=== PATIENT | male | born 1935 ===

== ENCOUNTER 2017-07-03 16:41 | Inpatient (IN) | payer MEDICARE, OTHER ==
[2017-07-03] MEDS ORDERED: Albuterol-Ipratrop 3 mg / 0.5 (3 ml) UD INH STA ×2 (17:19→17:21)
--- NOTE | 2017-07-03 17:25 | ED PDOC ---
HPI: SOB/CHF/COPD Time Seen by Provider: 07/03/17 17:07 Chief Complaint (Nursing): Shortness Of Breath Chief Complaint (Provider): SOB History Per: Patient History/Exam Limitations: no limitations Additional Complaint(s): Pt reports SOB X 2 months, associated with nonproductive cough. Denies fever, CP, palpitations. Pt uses MDI and nebulizer at home. Past Medical History Reviewed: Nursing Documentation, Vital Signs Vital Signs: Last Vital Signs Temp 97.6 F 07/03/17 16:57 Pulse 77 07/03/17 16:57 Resp 17 07/03/17 18:30 BP 146/77 07/03/17 16:57 Pulse Ox 98 07/03/17 18:30 - Medical History PMH: Asthma, Atrial Fibrillation, CAD, Cardia Arrhythmia, CHF (Cardiomyopathy), COPD, Diabetes, Emphysema, Gastritis, HTN, Hypercholesterolemia - Surgical History Surgical History: Pacemaker (AICD) - Family History Family History: States: Unknown Family Hx - Living Arrangements Living Arrangements: With Family - Social History Current smoker - smoking cessation education provided: No - Immunization History Hx Tetanus Toxoid Vaccination: No Hx Influenza Vaccination: No Hx Pneumococcal Vaccination: No - Home Medications Home Medications: Ambulatory Orders Medication Instructions Recorded Montelukast [Singulair] 10 mg PO HS 12/29/14 Valsartan [Diovan] 160 mg PO DAILY 12/29/14 Amiodarone HCl [Cordarone] 200 mg PO DAILY 07/07/15 Cholecalciferol [Vitamin D 1000 IU] 2,000 unit PO DAILY 04/24/16 Gabapentin [Neurontin] 300 mg PO BID 04/24/16 Multivit,Iron,Min 5/Folic Acid 1 tab PO DAILY 04/24/16 [Strovite Forte Caplet] Albuterol 0.083% [Albuterol 0.083% 3 ml IH Q4 #30 neb 04/10/17 Inhal Roseanna (2.5 mg/3 ml) UD] Benzonatate [Tessalon Perles] 200 mg PO TID PRN #15 sgl 04/10/17 predniSONE [predniSONE Tab] 60 mg PO DAILY #12 tab 04/10/17 Aspirin [Aspirin Chewable] 81 mg PO DAILY chew 04/18/17 Losartan [Cozaar] 50 mg PO DAILY tab 04/18/17 Mercaptopurine [6-Mp] 100 mg PO DAILY tab 04/18/17 Mesalamine [Delzicol DR] 800 mg PO TID cap 04/18/17 Rosuvastatin Calcium [Crestor] 5 mg PO HS tab 04/18/17 Tamsulosin [Flomax] 0.4 mg PO DAILY cap 04/18/17 - Allergies Allergies/Adverse Reactions: Allergies Allergy/AdvReac Type Severity Reaction Status Date / Time shellfish derived Allergy RASH Verified 04/16/17 16:32 shrimp Allergy RASH Verified 04/16/17 16:32 Review of Systems Constitutional: Negative for: Fever, Chills Cardiovascular: Negative for: Chest Pain, Palpitations Respiratory: Positive for: Cough, Shortness of Breath, Wheezing. Negative for: Hemoptysis, Pleuritic Pain, Sputum Gastrointestinal: Negative for: Nausea, Vomiting, Abdominal Pain, Diarrhea Musculoskeletal: Negative for: Neck Pain, Back Pain Skin: Negative for: Rash, Lesions Neurological: Negative for: Headache Physical Exam - Reviewed Nursing Documentation Reviewed: Yes Vital Signs Reviewed: Yes - Physical Exam Appears: Positive for: Well, No Acute Distress (Speaking full sentences) Skin: Positive for: Normal Color, Warm, Dry Eye Exam: Positive for: Normal appearance, EOMI, PERRL Cardiovascular/Chest: Positive for: Regular Rate, Rhythm Respiratory: Positive for: Wheezing (Bilateral). Negative for: Accessory Muscle Use Gastrointestinal/Abdominal: Positive for: Normal Exam Extremity: Positive for: Normal ROM Neurologic/Psych: Positive for: Alert, applications coordinator II-XII, Oriented - Laboratory Results Result Diagrams: 07/03/17 17:58 07/03/17 17:58 - ECG Interpretation Of ECG: Atrial-paced @ 73, LBBB (old). O2 Sat by Pulse Oximetry: 99 Pulse Ox Interpretation: Normal - Progress ED Course And Treament: Pt with continued bilateral wheezing and SOB after medications. Will admit. Re-evaluation Time: 19:58 Condition: Unchanged Medical Decision Making Medical Decision Makin yo male with wheezing and nonproductive cough. - labs - EKG - CXR - Albuterol/atrovent nebs - Solumedrol Accession No. : [id number] Patient Name / ID : MAHI Sharma [id number] Exam Date : 07/03/2017 17:39:34 ( Approved ) Study Comment : Sex / Age : M / 81Y Creator : renetta celaya Dictator : Jim Bronson MD Medical Office Technology Instructor : Stunt Driver : Jim Bronson MD Approver2 : Report Date : 07/03/2017 17:48:58 My Comment : HISTORY: SOB COMPARISON: 07/07/2015 FINDINGS: LUNGS: No active pulmonary disease. PLEURA: No significant pleural effusion identified, no pneumothorax apparent. CARDIOVASCULAR: Position/ configuration of pacemaker\AICD device: Satisfactory. No radiographic findings to suggest acute or significant cardiovascular disease. OSSEOUS STRUCTURES: No significant abnormalities. VISUALIZED UPPER ABDOMEN: Normal. OTHER FINDINGS: None. IMPRESSION: No active disease. No significant interval change compared to the prior examination(s). Disposition - Clinical Impression Clinical Impression: COPD exacerbation - Patient ED Disposition Is Patient to be Admitted: Yes - Disposition Disposition Time: 19:59 Condition: STABLE Forms: [employer] (Yoruba) - Pt Status Changed To: Hospital Disposition Of: Inpatient - Admit Certification Admit to Inpatient:: After my assessment, the patient will require hospitalization for at least two midnights. This is because of the severity of symptoms shown, intensity of services needed, and/or the medical risk in this patient being treated as an outpatient. - POA Present On Arrival: None
[2017-07-03 18:09] LABS: BASO % 0.6 % (0.0-2.0); EOS # 0.9 K/uL (0.0-0.7); EOS % 13.4 % (0.0-4.0); HEMOGLOBIN 12.9 g/dL (12.0-18.0); LYMPH # 2.3 K/uL (1.0-4.3); LYMPH % 36.2 % (20.0-40.0); MEAN CELL VOLUME 90.6 fl (80.0-94.0); MEAN CORPUSCULAR HEMOGLOBIN 30.3 pg (27.0-31.0); MEAN CORPUSCULAR HGB CONC 33.4 g/dL (33.0-37.0); MEAN PLATELET VOLUME 10.1 fl (7.2-11.7); MONO # 0.4 K/uL (0.0-0.8); MONO % 6.4 % (0.0-10.0); NEUT # 2.8 K/uL (1.8-7.0); NEUT % 43.4 % (50.0-75.0); NRBC % 0.1 % (0.0-0.0); RBC 4.25 Mil/uL (4.40-5.90); RED CELL DISTRIBUTION WIDTH 14.7 % (11.5-14.5); WHITE BLOOD COUNT 6.5 K/uL (4.8-10.8)
[2017-07-03 18:14] LABS: INR 1.2 (0.9-1.2); PARTIAL THROMBOPLASTIN TIME 27.9 Seconds (25.6-37.1)
[2017-07-03 18:15] LABS: CALCIUM 8.8 mg/dL (8.4-10.2); GFR AFRICAN-AMERICAN > 60; GFR NON-AFRICAN AMERICAN > 60
[2017-07-03 18:19] LABS: ALBUMIN 3.9 g/dL (3.5-5.0); ALT/SGPT 28 U/L (21-72); AST/SGOT 31 U/L (17-59); BLOOD UREA NITROGEN 20 mg/dl (9-20)
[2017-07-03] MEDS ORDERED: Albuterol-Ipratrop 3 mg / 0.5 (3 ml) UD ONE (18:26)
--- NOTE | 2017-07-03 18:51 | RAD ---
HISTORY: SOB COMPARISON: 07/07/2015 FINDINGS: LUNGS: No active pulmonary disease. PLEURA: No significant pleural effusion identified, no pneumothorax apparent. CARDIOVASCULAR: Position/ configuration of pacemaker radiographic findings to suggest acute or significant cardiovascular disease. OSSEOUS STRUCTURES: No significant abnormalities. VISUALIZED UPPER ABDOMEN: Normal. OTHER FINDINGS: None. IMPRESSION: No active disease. No significant interval change compared to the prior examination(s). Concordant results with the preliminary interpretation rendered by the emergency department physician procedure.
[2017-07-03] MEDS ORDERED: methylPREDNISolone 60 MG in Sodium Chloride 0.9% 50 ML IVPB SCH (21:00)
[2017-07-03] MEDS ORDERED: MethylPREDNISolone 40 mg Vial ONE (21:39)
[2017-07-04 05:53] LABS: BASO % 0.1 % (0.0-2.0); EOS % 0.2 % (0.0-4.0); HEMOGLOBIN 12.7 g/dL (12.0-18.0); LYMPH # 1.1 K/uL (1.0-4.3); LYMPH % 22.4 % (20.0-40.0); MEAN CELL VOLUME 91.1 fl (80.0-94.0); MEAN CORPUSCULAR HEMOGLOBIN 30.1 pg (27.0-31.0); MEAN PLATELET VOLUME 10.4 fl (7.2-11.7); MONO % 0.5 % (0.0-10.0); NEUT # 3.7 K/uL (1.8-7.0); NEUT % 76.8 % (50.0-75.0); NRBC % 0.2 % (0.0-0.0); RBC 4.23 Mil/uL (4.40-5.90); WHITE BLOOD COUNT 4.8 K/uL (4.8-10.8)
[2017-07-04 06:08] LABS: ALB/GLOB RATIO 0.9 (1.0-2.1); ALBUMIN 3.7 g/dL (3.5-5.0); ALT/SGPT 30 U/L (21-72); AST/SGOT 19 U/L (17-59); BLOOD UREA NITROGEN 19 mg/dl (9-20); CALCIUM 9.2 mg/dL (8.4-10.2); GFR AFRICAN-AMERICAN > 60; GFR NON-AFRICAN AMERICAN > 60
[2017-07-04] MEDS: Albuterol-Ipratrop 3 mg / 0.5 (3 ml) UD INH PRN ×3 (07:51→19:02)
--- NOTE | 2017-07-04 07:58 | CP.PCM.HP ---
History of Present Illness - History of Present Illness History of Present Illness: pt admitted for copd exacerbation. has hads/s on/off x 1 month since being tx foruri/bronchitits. at present comfortable but on nasal o2. no f/c, n/v/d. bw noted. Present on Admission - Present on Admission Any Indicators Present on Admission: No Review of Systems - Respiratory Respiratory: As Per HPI, Cough, Dyspnea on Exertion, Wheezing, Chest Congestion Past Patient History - Infectious Disease Hx of Infectious Diseases: None - Past Medical History & Family History Past Medical History?: Yes - Past Social History Smoking Status: Former Smoker - CARDIAC Hx Atrial Fibrillation: Yes Hx Cardia Arrhythmia: Yes Hx Congestive Heart Failure: Yes (Cardiomyopathy) Hx Hypercholesterolemia: Yes Hx Hypertension: Yes Hx Pacemaker: Yes (AICD) - PULMONARY Hx Asthma: Yes Hx Chronic Obstructive Pulmonary Disease (COPD): Yes Hx Emphysema: Yes - NEUROLOGICAL Hx Neurological Disorder: No - HEENT Hx HEENT Problems: No - RENAL Hx Chronic Kidney Disease: No - ENDOCRINE/METABOLIC Hx Endocrine Disorders: No - HEMATOLOGICAL/ONCOLOGICAL Hx Blood Disorders: No Hx AIDS: No Hx Human Immunodeficiency Virus (HIV): No - INTEGUMENTARY Hx Dermatological Problems: No - MUSCULOSKELETAL/RHEUMATOLOGICAL Hx Musculoskeletal Disorders: Yes Hx Falls: No - GASTROINTESTINAL Hx Gastritis: Yes - GENITOURINARY/GYNECOLOGICAL Hx Genitourinary Disorders: No - PSYCHIATRIC Hx Psychophysiologic Disorder: No Hx Substance Use: No - SURGICAL HISTORY Hx Surgeries: Yes Hx Cataract Extraction: Yes Other/Comment: defibillator insertion 2004 - ANESTHESIA Hx Anesthesia: Yes Hx Anesthesia Reactions: No Hx Malignant Hyperthermia: No Meds Allergies/Adverse Reactions: Allergies Allergy/AdvReac Type Severity Reaction Status Date / Time shellfish derived Allergy RASH Verified 04/16/17 16:32 shrimp Allergy RASH Verified 04/16/17 16:32 Physical Exam - Constitutional Appears: Well, Non-toxic, No Acute Distress - Head Exam Head Exam: ATRAUMATIC, NORMAL INSPECTION, NORMOCEPHALIC - Eye Exam Eye Exam: EOMI, Normal appearance, PERRL Pupil Exam: NORMAL ACCOMODATION, PERRL - ENT Exam ENT Exam: Mucous Membranes Moist, Normal Exam - Neck Exam Neck exam: Positive for: Normal Inspection - Respiratory Exam Respiratory Exam: Wheezes, NORMAL BREATHING PATTERN Additional comments: exp wheezing - Cardiovascular Exam Cardiovascular Exam: REGULAR RHYTHM, RRR, +S1, +S2 - GI/Abdominal Exam GI & Abdominal Exam: Normal Bowel Sounds, Soft. absent: Tenderness - Extremities Exam Extremities exam: Positive for: full ROM, normal capillary refill, normal inspection, pedal pulses present - Back Exam Back exam: NORMAL INSPECTION - Neurological Exam Neurological exam: Alert, CN II-XII Intact, Normal Gait, Oriented x3, Reflexes Normal - Psychiatric Exam Psychiatric exam: Normal Affect, Normal Mood - Skin Skin Exam: Dry, Intact, Normal Color, Warm Results - Vital Signs Recent Vital Signs: Last Vital Signs Temp 97.6 F 07/04/17 05:00 Pulse 76 07/04/17 07:51 Resp 18 07/04/17 05:00 BP 138/70 07/04/17 05:00 Pulse Ox 98 07/04/17 05:00 - Labs Result Diagrams: 07/04/17 04:20 07/04/17 04:20 Labs: Laboratory Results - last 24 hr 07/03/17 07/03/17 07/03/17 17:58 17:58 17:58 WBC 6.5 RBC 4.25 L Hgb 12.9 Hct 38.5 MCV 90.6 D MCH 30.3 MCHC 33.4 RDW 14.7 H Plt Count 216 MPV 10.1 Neut % (Auto) 43.4 L Lymph % (Auto) 36.2 Long % (Auto) 6.4 Eos % (Auto) 13.4 H Baso % (Auto) 0.6 Neut # (Auto) 2.8 Lymph # (Auto) 2.3 Long # (Auto) 0.4 Eos # (Auto) 0.9 H Baso # (Auto) 0.0 PT 13.0 INR 1.2 APTT 27.9 Sodium 143 Potassium 4.4 Chloride 106 Carbon Dioxide 23 Anion Gap 18 BUN 20 Creatinine 1.1 Est GFR ( Amer) > 60 Est GFR (Non-Af Amer) > 60 Random Glucose 106 Calcium 8.8 Total Bilirubin 0.5 AST 31 ALT 28 Alkaline Phosphatase 41 Total Protein 7.9 Albumin 3.9 Globulin 4.0 H Albumin/Globulin Ratio 1.0 07/04/17 07/04/17 04:20 04:20 WBC 4.8 RBC 4.23 L Hgb 12.7 Hct 38.6 MCV 91.1 MCH 30.1 MCHC 33.0 RDW 15.0 H Plt Count 207 MPV 10.4 Neut % (Auto) 76.8 H Lymph % (Auto) 22.4 Long % (Auto) 0.5 Eos % (Auto) 0.2 Baso % (Auto) 0.1 Neut # (Auto) 3.7 Lymph # (Auto) 1.1 Long # (Auto) 0.0 Eos # (Auto) 0.0 Baso # (Auto) 0.0 PT INR APTT Sodium 143 Potassium 4.3 Chloride 107 Carbon Dioxide 25 Anion Gap 15 BUN 19 Creatinine 1.1 Est GFR ( Amer) > 60 Est GFR (Non-Af Amer) > 60 Random Glucose 150 H Calcium 9.2 Total Bilirubin 0.3 AST 19 ALT 30 Alkaline Phosphatase 45 Total Protein 7.7 Albumin 3.7 Globulin 4.0 H Albumin/Globulin Ratio 0.9 L Assessment & Plan (1) DVT prophylaxis Assessment and Plan: scd andae hose ambulation Status: Acute (2) COPD exacerbation Assessment and Plan: duoneb, solumedrol mucinex, tessalon o2 prn oob Status: Acute Decision To Admit - Pt Status Changed To: Hospital Disposition Of: Inpatient - Admit Certification Admit to Inpatient:: After my assessment, the patient will require hospitalization for at least two midnights. This is because of the severity of symptoms shown, intensity of services needed, and/or the medical risk in this patient being treated as an outpatient. - . Bed Request Type: Telemetry Admitting Physician: Dana Luna
[2017-07-04] MEDS: guaiFENesin-DM 600-30 mg ER Tab PO SCH ×2 (08:58→17:24)
[2017-07-04] MEDS: Cholecalciferol 1,000 INTLU TAB PO SCH (08:58)
--- NOTE | 2017-07-04 09:54 | CARD ---
APPROVED REPORT EKG Measurement Heart [id number] ME [id number] <Conclusion> Atrial-paced rhythm with prolonged AV conduction Left axis deviation Left bundle branch block Abnormal ECG
[2017-07-04] MEDS: MethylPREDNISolone 40 mg Vial IV SCH ×2 (15:47→23:22)
[2017-07-05 06:29] LABS: BLOOD UREA NITROGEN 26 mg/dl (9-20); CALCIUM 9.1 mg/dL (8.4-10.2); GFR AFRICAN-AMERICAN > 60; GFR NON-AFRICAN AMERICAN 58
[2017-07-05 07:58] LABS: HEMOGLOBIN 12.6 g/dL (12.0-18.0); MEAN CELL VOLUME 91.3 fl (80.0-94.0); MEAN CORPUSCULAR HEMOGLOBIN 30.3 pg (27.0-31.0); MEAN CORPUSCULAR HGB CONC 33.2 g/dL (33.0-37.0); RBC 4.16 Mil/uL (4.40-5.90); RED CELL DISTRIBUTION WIDTH 15.3 % (11.5-14.5)
--- NOTE | 2017-07-05 08:07 | CP.PCM.PN ---
Subjective - Date & Time of Evaluation Date of Evaluation: 07/05/17 Time of Evaluation: 08:00 - Subjective Subjective: pt feeling better. less sob, but still feels he needs o2. no f/c, n/v/d. wbc noted likely r/t steroids Objective - Vital Signs/Intake and Output Vital Signs (last 24 hours): Temp Pulse Resp BP Pulse Ox 97.7 F 82 18 123/74 96 07/05/17 07:56 07/05/17 07:56 07/05/17 07:56 07/05/17 07:56 07/05/17 07:56 - Medications Medications: Current Medications Albuterol/Ipratropium (Duoneb 3 Mg/0.5 Mg (3 Ml) Ud) 3 ml INH RQ4 PRN PRN Reason: Shortness of Breath Last Admin: 07/04/17 19:02 Dose: 3 ml Amiodarone HCl (Cordarone) 200 mg PO DAILY [facility] Last Admin: 07/04/17 08:58 Dose: 200 mg Aspirin (Aspirin Chewable) 81 mg PO DAILY [facility] Last Admin: 07/04/17 08:57 Dose: 81 mg Benzonatate (Tessalon Perles) 200 mg PO TID PRN PRN Reason: Cough Cholecalciferol (Vitamin D) 1,000 intlu PO DAILY [facility] Last Admin: 07/04/17 08:58 Dose: 1,000 intlu Gabapentin (Neurontin) 300 mg PO BID [facility] Last Admin: 07/04/17 17:24 Dose: 300 mg Guaifenesin/Dextromethorphan (Mucinex-Dm 600-30 Mg) 1 tab PO BID [facility] Last Admin: 07/04/17 17:24 Dose: 1 tab Losartan Potassium (Cozaar) 50 mg PO DAILY [facility] Last Admin: 07/04/17 08:58 Dose: 50 mg Methylprednisolone (Solu-Medrol) 30 mg IV Q12H [facility] Last Admin: 07/04/17 23:22 Dose: 30 mg - Labs Labs: 07/05/17 04:25 07/05/17 04:25 PT 13.0 Seconds (9.8-13.1) 07/03/17 17:58 INR 1.2 (0.9-1.2) 07/03/17 17:58 APTT 27.9 Seconds (25.6-37.1) 07/03/17 17:58 - Constitutional Appears: Well, Non-toxic, No Acute Distress - Head Exam Head Exam: ATRAUMATIC, NORMAL INSPECTION, NORMOCEPHALIC - Eye Exam Eye Exam: EOMI, Normal appearance, PERRL Pupil Exam: NORMAL ACCOMODATION, PERRL - ENT Exam ENT Exam: Mucous Membranes Moist, Normal Exam - Neck Exam Neck Exam: Full ROM, Normal Inspection. absent: Lymphadenopathy - Respiratory Exam Respiratory Exam: Wheezes, NORMAL BREATHING PATTERN Additional comments: exp wheezing in all ortiz. otherwise good air entry - Cardiovascular Exam Cardiovascular Exam: REGULAR RHYTHM, +S1, +S2. absent: Murmur - GI/Abdominal Exam GI & Abdominal Exam: Soft, Normal Bowel Sounds. absent: Tenderness - Extremities Exam Extremities Exam: Full ROM, Normal Capillary Refill, Normal Inspection. absent : Joint Swelling, Pedal Edema - Back Exam Back Exam: NORMAL INSPECTION - Neurological Exam Neurological Exam: Alert, Awake, CN II-XII Intact, Normal Gait, Oriented x3 - Psychiatric Exam Psychiatric exam: Normal Affect, Normal Mood - Skin Skin Exam: Dry, Intact, Normal Color, Warm Assessment and Plan (1) DVT prophylaxis Status: Acute (2) COPD exacerbation Status: Acute - Assessment and Plan (Free Text) Assessment: (1) DVT prophylaxis Assessment and Plan: scd andae hose ambulation Status: Acute (2) COPD exacerbation Assessment and Plan: duoneb, solumedrol mucinex, tessalon o2 prn oob Status: Acute leukocytosis likely r/t steroids. wean o2
[2017-07-05] MEDS: Cholecalciferol 1,000 INTLU TAB PO SCH (09:10)
[2017-07-05] MEDS: guaiFENesin-DM 600-30 mg ER Tab PO SCH ×2 (09:11→16:58)
--- NOTE | 2017-07-05 11:05 | CARD ---
APPROVED REPORT EKG Measurement Heart [id number] [place] [id number] <Conclusion> Normal sinus rhythm Left axis deviation Left bundle branch block Abnormal ECG
[2017-07-05] MEDS: MethylPREDNISolone 40 mg Vial IV SCH ×2 (11:17→22:49)
--- NOTE | 2017-07-06 08:08 | CP.PCM.DIS ---
Provider - Provider Date of Admission: 07/03/17 19:54 Attending physician: Dana Luna MD Time Spent in preparation of Discharge (in minutes): 15 Diagnosis - Discharge Diagnosis (1) DVT prophylaxis Status: Acute (2) COPD exacerbation Status: Acute Hospital Course - Lab Results Lab Results: Micro Results 07/03/17 17:30 Blood-Venous Blood Culture - Preliminary NO GROWTH AFTER 48 HOURS 07/03/17 17:45 Blood-Venous Blood Culture - Preliminary NO GROWTH AFTER 48 HOURS Most Recent Lab Values WBC 11.0 K/uL (4.8-10.8) H D 07/05/17 04:25 RBC 4.16 Mil/uL (4.40-5.90) L 07/05/17 04:25 Hgb 12.6 g/dL (12.0-18.0) 07/05/17 04:25 Hct 38.0 % (35.0-51.0) 07/05/17 04:25 MCV 91.3 fl (80.0-94.0) 07/05/17 04:25 MCH 30.3 pg (27.0-31.0) 07/05/17 04:25 MCHC 33.2 g/dL (33.0-37.0) 07/05/17 04:25 RDW 15.3 % (11.5-14.5) H 07/05/17 04:25 Plt Count 202 K/uL (130-400) 07/05/17 04:25 MPV 10.4 fl (7.2-11.7) 07/04/17 04:20 Neut % (Auto) 76.8 % (50.0-75.0) H 07/04/17 04:20 Lymph % (Auto) 22.4 % (20.0-40.0) 07/04/17 04:20 [place] % (Auto) 0.5 % (0.0-10.0) 07/04/17 04:20 Eos % (Auto) 0.2 % (0.0-4.0) 07/04/17 04:20 Baso % (Auto) 0.1 % (0.0-2.0) 07/04/17 04:20 Neut # (Auto) 3.7 K/uL (1.8-7.0) 07/04/17 04:20 Lymph # (Auto) 1.1 K/uL (1.0-4.3) 07/04/17 04:20 [place] # (Auto) 0.0 K/uL (0.0-0.8) 07/04/17 04:20 Eos # (Auto) 0.0 K/uL (0.0-0.7) 07/04/17 04:20 Baso # (Auto) 0.0 K/uL (0.0-0.2) 07/04/17 04:20 PT 13.0 Seconds (9.8-13.1) 07/03/17 17:58 INR 1.2 (0.9-1.2) 07/03/17 17:58 APTT 27.9 Seconds (25.6-37.1) 07/03/17 17:58 Sodium 143 mmol/l (132-148) 07/05/17 04:25 Potassium 4.5 MMOL/L (3.6-5.0) 07/05/17 04:25 Chloride 106 mmol/L (98-107) 07/05/17 04:25 Carbon Dioxide 24 mmol/L (22-30) 07/05/17 04:25 Anion Gap 18 (10-20) 07/05/17 04:25 BUN 26 mg/dl (9-20) H 07/05/17 04:25 Creatinine 1.2 mg/dl (0.8-1.5) 07/05/17 04:25 Est GFR ( Amer) > 60 07/05/17 04:25 Est GFR (Non-Af Amer) 58 07/05/17 04:25 Random Glucose 180 mg/dL (75-110) H 07/05/17 04:25 Calcium 9.1 mg/dL (8.4-10.2) 07/05/17 04:25 Total Bilirubin 0.3 mg/dl (0.2-1.3) 07/04/17 04:20 AST 19 U/L (17-59) 07/04/17 04:20 ALT 30 U/L (21-72) 07/04/17 04:20 Alkaline Phosphatase 45 U/L (38-126) 07/04/17 04:20 Total Protein 7.7 G/DL (6.3-8.2) 03/20/18 04:20 Albumin 3.7 g/dL (3.5-5.0) 07/04/17 04:20 Globulin 4.0 gm/dL (2.2-3.9) H 07/04/17 04:20 Albumin/Globulin Ratio 0.9 (1.0-2.1) L 07/04/17 04:20 - Hospital Course Hospital Course: iv solumedrol duoneb Discharge Exam - Head Exam Head Exam: ATRAUMATIC, NORMAL INSPECTION, NORMOCEPHALIC - Eye Exam Eye Exam: EOMI, Normal appearance, PERRL Pupil Exam: NORMAL ACCOMODATION, PERRL - Respiratory Exam Respiratory Exam: Wheezes, NORMAL BREATHING PATTERN Additional comments: exp wheezing, improving, good air entry - Cardiovascular Exam Cardiovascular Exam: REGULAR RHYTHM, RRR, +S1, +S2 - GI/Abdominal Exam GI & Abdominal Exam: Normal Bowel Sounds - Extremities Exam Extremities exam: full ROM, normal capillary refill, normal inspection, pedal pulses present - Neurological Exam Neurological exam: Alert, CN II-XII Intact, Normal Gait, Oriented x3, Reflexes Normal - Psychiatric Exam Psychiatric exam: Normal Affect, Normal Mood - Skin Skin Exam: Dry, Intact, Normal Color, Warm Discharge Plan - Follow Up Plan Condition: STABLE Disposition: HOME/ ROUTINE Instructions: Exacerbation of COPD (DC) Additional Instructions: final dx-copd exacerbation doing well. off o2. no f/c, n/v/d. will repeat cbc outpt f/u rmg monday, rted prn, meds pe rmed rec Referrals: Garcia Batista, DELBERT, SCADA TECHNICIAN [Family Provider] -
[2017-07-06 08:15] VITALS: BP 142/77; PULSE 67; RESP 20; TEMP 97.2; O2SAT 95
[2017-07-06] MEDS: guaiFENesin-DM 600-30 mg ER Tab PO SCH (08:44)
[2017-07-06] MEDS: Cholecalciferol 1,000 INTLU TAB PO SCH (08:44)
== END 2017-07-06 12:56 | disposition home or self-care (01) | DRG 191 ==
LOC: H.ER 16:41 → H.ERHOLD 19:54 → H.TEL 21:55
PROVIDERS: ADMIT Family Medicine; ATTEND Family Medicine
DX: J44.1 Chronic obstructive pulmonary disease with (acute) exacerbation (principal); I42.9 Cardiomyopathy, unspecified; I48.91 Unspecified atrial fibrillation; I11.0 Hypertensive heart disease with heart failure; I50.9 Heart failure, unspecified; D72.829 Elevated white blood cell count, unspecified; E11.9 Type 2 diabetes mellitus without complications; I25.10 Atherosclerotic heart disease of native coronary artery without angina pectoris; K29.70 Gastritis, unspecified, without bleeding; E78.00 Pure hypercholesterolemia, unspecified; Z95.0 Presence of cardiac pacemaker; Z87.891 Personal history of nicotine dependence; Z91.013 Allergy to seafood; T38.0X5A Adverse effect of glucocorticoids and synthetic analogues, initial encounter

== ENCOUNTER 2017-12-30 14:04 | Inpatient (IN) | payer MEDICARE, OTHER ==
--- NOTE | 2017-12-30 15:33 | ED PDOC ---
Addendum entered and electronically signed by Sparkle Larkin MD 12/30/17 19: 42: Addendum Addendum: Rectal exam performed to assess Rectal tone- senior center director in room Yahaira Romo RN Original Note: Arrival/HPI - General Historian: Patient EM Caveat: Language Barrier - History of Present Illness Time/Duration: > week Symptom Onset: Gradual Symptom Course: Worsening Quality: Stabbing Severity Level: 9 <Sparkle Larkin - Last Filed: 12/30/17 19:41> <Keila Pablo - Last Filed: 12/30/17 23:16> - General Chief Complaint: Hip Pain - History of Present Illness Narrative History of Present Illness (Text): [id number] Pt is an 82 yo M with history of osteoarthritis (dx 2012) presents with Right leg pain. The pain has been constant for 1 month, and has been more severe since last Monday, he describes it as sharp and 9/10 in severity, he has had trouble standing/walking and the pain gets worse with movement so hes been using crutches, he tried Ibuprofen 600mg without relief. Pt went to [facility] on 12/23 where they performed B/L hip Xray which showed severe DJD, joint space narrowing and subchondral sclerosis. They recommended him to follow up with Dr. Villegas for a possible right hip replacement. Patient has an appointment with him this but couldn't tolerate the pain. Patient also has decreased sensation on the top of the right foot and right anteromedial thigh. Denies chest pain, SOB, nausea, vomiting. PMD: Dr. Sia Nava- [facility] (Sparkle Larkin) Modifying Factors (Text): Worse with movement and ambulation (Sparkle Larkin) Associated Symptoms (Text): Decreased sensation on top of foot and anteromedial thigh (Sparkle Larkin) Past Medical History - Travel History Have you recently traveled outside [place] w/in the past 3 mons?: No - Infectious Disease Hx of Infectious Diseases: None - Cardiac Hx Atrial Fibrillation: Yes Hx Coronary Artery Disease: Yes Hx Cardiac Arrhythmia: Yes Hx Congestive Heart Failure: Yes (Cardiomyopathy) Hx Hypertension: Yes Hx Pacemaker: Yes (AICD) - Pulmonary Hx Asthma: Yes Hx Chronic Obstructive Pulmonary Disease (COPD): Yes Hx Emphysema: Yes - Neurological Hx Neurological Disorder: No - HEENT Hx HEENT Disorder: No - Renal Hx Renal Disorder: No - Endocrine/Metabolic Hx Endocrine Disorders: No - Hematological/Oncological Hx Blood Disorders: No Hx AIDS: No - Integumentary Hx Dermatological Disorder: No - Musculoskeletal/Rheumatological Hx Musculoskeletal Disorders: Yes Hx Falls: No - Gastrointestinal Hx Gastritis: Yes - Genitourinary/Gynecological Hx Genitourinary Disorders: No - Psychiatric Hx Substance Use: No - Surgical History Hx Cataract Extraction: Yes Other/Comment: defibillator insertion 2005 - Anesthesia Hx Anesthesia: Yes Hx Anesthesia Reactions: No Hx Malignant Hyperthermia: No - Suicidal Assessment Feels Threatened In Home Enviroment: No <Sparkle Larkin - Last Filed: 12/30/17 19:41> Family/Social History Family/Social History: Unknown Family HX Smoking Status: Former Smoker Hx Alcohol Use: No Hx Substance Use: No <Sparkle Larkin - Last Filed: 12/30/17 19:41> Allergies/Home Meds <Sparkle Larkin - Last Filed: 12/30/17 19:41> <Keila Pablo - Last Filed: 12/30/17 23:16> Allergies/Adverse Reactions: Allergies shellfish derived Allergy (Verified 12/30/17 14:21) RASH shrimp Allergy (Verified 12/30/17 14:21) RASH Home Medications: Home Meds Medication Instructions Recorded Confirmed Montelukast [Singulair] 10 mg PO HS 12/29/14 12/30/17 Tamsulosin [Flomax] 0.4 mg PO DAILY 12/30/17 12/30/17 Review of Systems - Patients Enrolled in [employer] [X]: A conversation was conducted with the primary medical doctor. - Review of Systems Gastrointestinal: Diarrhea Musculoskeletal: Other (R Hip pain, anteromedial numbness ) <Sparkle Larkin - Last Filed: 12/30/17 19:41> Physical Exam Appearance: Positive for: Non-Toxic, Uncomfortable Mental Status: Positive for: Alert and Oriented X 3 - Systems Exam Head: Present: Atraumatic, Normocephalic Pupils: Present: PERRL Extroacular Muscles: Present: EOMI Conjunctiva: Present: Normal Mouth: Present: Moist Mucous Membranes Neck: Present: Normal Range of Motion Respiratory/Chest: Present: Clear to Auscultation Cardiovascular: Present: Regular Rate and Rhythm, Normal S1, S2 Abdomen: Present: Normal Bowel Sounds Rectal: Present: Normal Rectal Tone Back: Present: Pain with Leg Raise Upper Extremity: Present: Normal ROM, Norm 2-Pt Discrimination Lower Extremity: Present: NORMAL PULSES, Swelling (R>L) Neurological: Present: CN II-XII Intact, Speech Normal, Motor Func Grossly Intact, Normal Sensory Function, Other (Decreased sensation at top of Right foot and anteromedial thigh) Skin: Present: Normal Color Psychiatric: Present: Alert, Oriented x 3 <Sparkle Larkin - Last Filed: 12/30/17 19:41> Vital Signs Temp Pulse Resp BP Pulse Ox 12/30/17 21:42 98.1 F 78 20 140/82 96 12/30/17 21:02 98 F 78 18 138/78 98 12/30/17 14:21 98.0 F 81 16 161/84 H 96 Medical Decision Making Re-evaluation Time: 19:00 Reassessment Condition: Re-examined, Unchanged <Sparkle Larkin - Last Filed: 12/30/17 19:41> <Keila Pablo - Last Filed: 12/30/17 23:16> ED Course and Treatment: Pt is an 82 yo M presents with sharp R hip pain after failed NSAID therapy -Recommened MRI however Pt has an pacemaker and approval must be attained -Gave Morphine 2mg (x2) patients pain failed to improve -CBC, BMP, PT/PTT/INR, Type and Screen -Dexamethasone 10mg Once -Attempt at ambulation failed, patient cant move his leg without severe pain, patient does not have assistance to ambulate at home lives with elderly -Spoke with Dr. Batista will admit to [facility] for pain control -Pt is aware and in agreement with plan (Sparkle Larkin) - Lab Interpretations Lab Results: 12/30/17 19:30 Lab Results 12/30/17 19:30: WBC 6.1, RBC 4.55, Hgb 13.4, Hct 40.0, MCV 88.0 D, MCH 29.4, MCHC 33.4, RDW 14.2, Plt Count 228, MPV 9.6, Neut % (Auto) 72.2, Lymph % (Auto) 17.3 L, [place] % (Auto) 2.3, Eos % (Auto) 7.7 H, Baso % (Auto) 0.5, Neut # (Auto) 4.4, Lymph # (Auto) 1.0, [place] # (Auto) 0.1, Eos # (Auto) 0.5, Baso # (Auto) 0.0 - Medication Orders Current Medication Orders: Ketorolac Tromethamine (Toradol) 30 mg IVP Q6 PRN PRN Reason: Pain, moderate (4-7) Oxycodone/Acetaminophen (Percocet 5/325 Mg Tab) 1 tab PO Q4 PRN PRN Reason: Pain, severe (8-10) Stop: 01/02/18 19:28 Discontinued Medications Dexamethasone (Decadron Inj) 10 mg IV ONCE ONE Stop: 12/30/17 17:31 Last Admin: 12/30/17 17:28 Dose: 10 mg eMAR Start Stop Document 12/30/17 17:28 CC (Rec: 12/30/17 17:28 CC [id number]) Intravenous Solution Start Date 12/30/17 Start Time 17:28 Dexamethasone 10 mg/ Sodium (Chloride) 51 mls @ 100 mls/hr IV ONCE ONE Stop: 12/30/17 17:46 Morphine Sulfate (Morphine) 2 mg IVP ONCE ONE Stop: 12/30/17 15:37 Last Admin: 12/30/17 16:04 Dose: 2 mg [facility] Pain Assessment Document 12/30/17 16:04 CC (Rec: 12/30/17 16:05 CC [id number]) Pain Reassessment Is this a pain reassessment? No IVP Administration Document 12/30/17 16:04 CC (Rec: 12/30/17 16:05 CC [id number]) Charges for Administration # of IVP Administrations 1 Re-Assess: YEMI Pain Assessment Document 12/30/17 17:00 CC (Rec: 12/30/17 17:33 CC [id number]) Pain Reassessment Is this a pain reassessment? Yes Sleep Is patient sleeping during reassessment? No Presence of Pain Presence of Pain Yes Pain Scale Used Pain Scale Used Numeric Location Left, Right or Bilateral Right Pain Location Body Site Hip Description Description Constant Morphine Sulfate (Morphine) 2 mg IVP ONCE ONE Stop: 12/30/17 17:14 Last Admin: 12/30/17 17:28 Dose: 2 mg MAR Pain Assessment Document 12/30/17 17:28 CC (Rec: 12/30/17 17:28 CC [id number]) Pain Reassessment Is this a pain reassessment? No IVP Administration Document 12/30/17 17:28 CC (Rec: 12/30/17 17:28 CC [id number]) Charges for Administration # of IVP Administrations 1 Disposition/Present on Arrival - Present on Arrival Any Indicators Present on Arrival: No History of DVT/PE: No History of Uncontrolled Diabetes: No Urinary Catheter: No History Surgical Site Infection Following: None - Disposition Have Diagnosis and Disposition been Completed?: Yes Disposition Time: 19:15 (Dispo pending, transfer of care to Attending) Patient Plan: Admission <Sparkle Larkin - Last Filed: 12/30/17 19:41> <Keila Pablo - Last Filed: 12/30/17 23:16> - Disposition Diagnosis: Hip pain, Osteoarthritis of hip, Hip arthritis Disposition: HOSPITALIZED Patient Problems: Current Active Problems Problem Status Onset Hip arthritis Acute Hip pain Acute Osteoarthritis of hip Acute Condition: FAIR Attending/Attestation <Sparkle Larkin - Last Filed: 12/30/17 19:41> - Attestation I have personally seen and examined this patient.: Yes I have fully participated in the care of the patient.: Yes I have reviewed all pertinent clinical information, including history, physical exam and plan: Yes <Keial Pablo - Last Filed: 12/30/17 23:16> - Attestation Notes (Text): 12/30/17 23:13 Pt presented with worsening right hip pain. Pt unable to ambulate and even movement in the stretcher causing excruciating pain. Pain not improved with IV morphine. Resident spoke with Garcia Batista as pt follows with [facility] who agrees [facility] admission for pain control. (Keila Pablo)
[2017-12-30] MEDS ORDERED: Dexamethasone 10 MG in Sodium Chloride 0.9% 50 ML IV ONE (17:17)
[2017-12-30 19:39] LABS: BASO % 0.5 % (0.0-2.0); EOS # 0.5 K/uL (0.0-0.7); EOS % 7.7 % (0.0-4.0); HEMOGLOBIN 13.4 g/dL (12.0-18.0); LYMPH % 17.3 % (20.0-40.0); MEAN CORPUSCULAR HEMOGLOBIN 29.4 pg (27.0-31.0); MEAN CORPUSCULAR HGB CONC 33.4 g/dL (33.0-37.0); MEAN PLATELET VOLUME 9.6 fl (7.2-11.7); MONO # 0.1 K/uL (0.0-0.8); MONO % 2.3 % (0.0-10.0); NEUT # 4.4 K/uL (1.8-7.0); NEUT % 72.2 % (50.0-75.0); RBC 4.55 Mil/uL (4.40-5.90); RED CELL DISTRIBUTION WIDTH 14.2 % (11.5-14.5); WHITE BLOOD COUNT 6.1 K/uL (4.8-10.8)
[2017-12-30 20:04] LABS: BASO % 0.3 % (0.0-2.0); EOS # 0.3 K/uL (0.0-0.7); EOS % 5.2 % (0.0-4.0); HEMOGLOBIN 13.6 g/dL (12.0-18.0); LYMPH # 0.9 K/uL (1.0-4.3); LYMPH % 15.1 % (20.0-40.0); MEAN CELL VOLUME 87.9 fl (80.0-94.0); MEAN CORPUSCULAR HEMOGLOBIN 29.1 pg (27.0-31.0); MEAN CORPUSCULAR HGB CONC 33.1 g/dL (33.0-37.0); MEAN PLATELET VOLUME 9.4 fl (7.2-11.7); MONO # 0.1 K/uL (0.0-0.8); MONO % 1.3 % (0.0-10.0); NEUT # 4.6 K/uL (1.8-7.0); NEUT % 78.1 % (50.0-75.0); RBC 4.66 Mil/uL (4.40-5.90); RED CELL DISTRIBUTION WIDTH 14.1 % (11.5-14.5); WHITE BLOOD COUNT 5.9 K/uL (4.8-10.8)
[2017-12-30 20:09] LABS: INR 1.3; PROTHROMBIN TIME 13.9 Seconds (9.8-13.1)
[2017-12-30 20:12] LABS: PARTIAL THROMBOPLASTIN TIME 33.4 Seconds (25.6-37.1)
[2017-12-30 20:13] LABS: BLOOD UREA NITROGEN 18 mg/dl (9-20); CALCIUM 9.7 mg/dL (8.4-10.2); GFR NON-AFRICAN AMERICAN 58
[2017-12-31] MEDS: Oxycodone/Acetaminophen 5/325 mg Tab PO PRN ×2 (00:06→21:52)
[2017-12-31 06:19] LABS: EOS % 0.1 % (0.0-4.0); LYMPH % 24.8 % (20.0-40.0); MEAN CORPUSCULAR HEMOGLOBIN 29.4 pg (27.0-31.0); MEAN CORPUSCULAR HGB CONC 33.4 g/dL (33.0-37.0); MEAN PLATELET VOLUME 9.7 fl (7.2-11.7); MONO % 0.9 % (0.0-10.0); NEUT # 2.9 K/uL (1.8-7.0); NEUT % 74.2 % (50.0-75.0); NRBC % 0.1 % (0.0-0.0); RBC 4.43 Mil/uL (4.40-5.90); RED CELL DISTRIBUTION WIDTH 14.2 % (11.5-14.5); WHITE BLOOD COUNT 3.9 K/uL (4.8-10.8)
[2017-12-31 06:30] LABS: ALBUMIN 3.8 g/dL (3.5-5.0); ALT/SGPT 23 U/L (21-72); AST/SGOT 29 U/L (17-59); BLOOD UREA NITROGEN 21 mg/dl (9-20); CALCIUM 9.6 mg/dL (8.4-10.2); GFR NON-AFRICAN AMERICAN 58
--- NOTE | 2017-12-31 13:51 | CP.PCM.CON ---
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 Patient requires hip surgery with Dr Villegas. He denies chest pain or dyspnea. he is lying comfortably in bed. He had recent AICD generator change by [facility]. Review of Systems - Constitutional Constitutional: absent: As Per HPI, Anorexia, Chills, Daytime Sleepiness, Excessive Sweating, Fatigue, Fever, Frequent Falls, Headache, Increased Appetite , Lethargy, Malaise, Night Sweats, Snoring, Sleep Apnea, Weight Gain, Weight Loss, Weakness, Other - EENT Eyes: absent: As Per HPI, Blind Spots, Blurred Vision, Change in Vision, Decreased Night Vision, Diplopia, Discharge, Dry Eye, Exophthalmos, Floaters, Irritation, Itchy Eyes, Loss of Peripheral Vision, Pain, Photophobia, Requires Corrective Lenses, Sees Flashes, Spots in Vision, Tunnel Vision, Other Visual Disturbances, Loss of Vision, Other Ears: absent: As Per HPI, Decreased Hearing, Ear Discharge, Ear Pain, Tinnitus, Abnormal Hearing, Disequilibrium, Dizziness, Other Nose/Mouth/Throat: absent: As Per HPI, Epistaxis, Nasal Congestion, Nasal Discharge, Nasal Obstruction, Nasal Trauma, Nose Pain, Post Nasal Drip, Sinus Pain, Sinus Pressure, Bleeding Gums, Change in Voice, Dental Pain, Dry Mouth, Dysphagia, Halitosis, Hoarsness, Lip Swelling, Mouth Lesions, Mouth Pain, Odynophagia, Sore Throat, Throat Swelling, Tongue Swelling, Facial Pain, Neck Pain, Neck Mass, Other - Cardiovascular Cardiovascular: absent: As Per HPI, Acrocyanosis, Chest Pain, Chest Pain at Rest , Chest Pain with Activity, Claudication, Diaphoresis, Dyspnea, Dyspnea on Exertion, Edema, Irregular Heart Rhythm, Pain Radiating to Arm/Neck/Jaw, Leg Edema, Leg Ulcers, Lightheadedness, Orthopnea, Palpitations, Paroxysmal Nocturnal Dyspnea, Pedal Edema, Radiating Pain, Rapid Heart Rate, Slow Heart Rate, Syncope, Other - Respiratory Respiratory: absent: As Per HPI, Cough, Dyspnea, Hemoptysis, Dyspnea on Exertion , Wheezing, Snoring, Stridor, Pain on Inspiration, Chest Congestion, Excessive Mucous Production, Change in Mucous Color, Pain with Coughing, Other - Gastrointestinal Gastrointestinal: absent: As Per HPI, Abdominal Pain, Belching, Bloating, Change in Bowel Habits, Change in Stool Character, Coffee Ground Emesis, Constipation, Cramping, Diarrhea, Dyspepsia, Dysphagia, Early Satiety, Excessive Flatus, Fecal Incontinence, Heartburn, Hematemesis, Hematochezia, Loose Stools, Melena, Nausea, Odynophagia, Temesmus, Vomiting, Other - Genitourinary Genitourinary: absent: As Per HPI, Change in Urinary Stream, Difficulty Urinating, Dysuria, Flank Pain, Hematuria, Pyuria, Nocturia, Urinary Incontinence, Urinary Frequency, Urinary Hesitance, Urinary Urgency, Voiding Freq/Small Amts, Freq UTI, Hx Renal/Bladder Calculi, Hx /Renal Surgery, Bladder Distension, Other - Musculoskeletal Musculoskeletal: Radiating Pain into Limb - Integumentary Integumentary: absent: As Per HPI, Acne, Alopecia, Bleeding Lesions, Change in Hair, Change in Nails, Change in Pigmentation, Changing Lesions, Dry Skin, Erythema, Furuncle, Hirsutism, Lesions, New Lesions, Non-Healing Lesions, Photosensitivity, Pruritus, Rash, Skin Pain, Skin Ulcer, Sores, Striae, Swelling , Unusual Bruising, Wounds, Jaundice, Other - Neurological Neurological: absent: As Per HPI, Abnormal Gait, Abnormal Hearing, Abnormal Movements, Abnormal Speech, Behavioral Changes, Burning Sensations, Confusion, Convulsions, Disequilibrium, Dizziness, Numbness, Focal Weakness, Frequent Falls , Headaches, Lack of Coordination, Loss of Vision, Memory Loss, Paresthesias, Radicular Pain, Restless Legs, Sensory Deficit, Syncope, Tingling, Tremor, Vertigo, Weakness, Other Visual Disturbances, Other - Psychiatric Psychiatric: absent: As Per HPI, Abnormal Sleep Pattern, Anhedonia, Anxiety, Auditory Hallucinations, Behavioral Changes, Change in Appetite, Change in Libido, Confusion, Depression, Difficulty Concentrating, Hallucinations, Homicidal Ideation, Hopelessness, Irritability, Memory Loss, Mood Swings, Panic Attacks, Paranoia, Suicidal Ideation, Visual Hallucinations, Tactile Hallucinations, Other - Endocrine Endocrine: absent: As Per HPI, Change in Body Appearance, Change in Libido, Cold Intolorance, Deepening of Voice, Excessive Sweating, Fatigue, Flushing, Heat Intolorance, Increase in Ring/Shoe/Hat Size, Palpitations, Polydipsia, Polyphagia, Polyuria, Other - Hematologic/Lymphatic Hematologic: absent: As Per HPI, Easy Bleeding, Easy Bruising, Lymphadenopathy, Other Past Patient History - Infectious Disease Hx of Infectious Diseases: None - Past Medical History & Family History Past Medical History?: Yes - Past Social History Smoking Status: Former Smoker - CARDIAC Hx Cardiac Disorders: Yes Hx Atrial Fibrillation: Yes Hx Cardia Arrhythmia: Yes Hx Congestive Heart Failure: Yes (Cardiomyopathy) Hx Hypertension: Yes Hx Pacemaker: Yes (AICD) - PULMONARY Hx Respiratory Disorders: Yes Hx Asthma: Yes Hx Chronic Obstructive Pulmonary Disease (COPD): Yes Hx Emphysema: Yes - NEUROLOGICAL Hx Neurological Disorder: No - HEENT Hx HEENT Problems: No - RENAL Hx Chronic Kidney Disease: No - ENDOCRINE/METABOLIC Hx Endocrine Disorders: No - HEMATOLOGICAL/ONCOLOGICAL Hx Blood Disorders: No Hx AIDS: No - INTEGUMENTARY Hx Dermatological Problems: No - MUSCULOSKELETAL/RHEUMATOLOGICAL Hx Musculoskeletal Disorders: Yes Hx Falls: No - GASTROINTESTINAL Hx Gastrointestinal Disorders: Yes Hx Gastritis: Yes - GENITOURINARY/GYNECOLOGICAL Hx Genitourinary Disorders: No - PSYCHIATRIC Hx Psychophysiologic Disorder: No Hx Substance Use: No - SURGICAL HISTORY Hx Surgeries: Yes Hx Cataract Extraction: Yes Other/Comment: defibillator insertion 2004 - ANESTHESIA Hx Anesthesia: Yes Hx Anesthesia Reactions: No Hx Malignant Hyperthermia: No Has any member of the family had a problem w/ anesthesia?: No Meds Allergies/Adverse Reactions: Allergies Allergy/AdvReac Type Severity Reaction Status Date / Time shellfish derived Allergy RASH Verified 12/30/17 14:21 shrimp Allergy RASH Verified 12/30/17 14:21 - Medications Medications: Current Medications Ketorolac Tromethamine (Toradol) 30 mg IVP Q6 PRN PRN Reason: Pain, moderate (4-7) Oxycodone/Acetaminophen (Percocet 5/325 Mg Tab) 1 tab PO Q4 PRN PRN Reason: Pain, severe (8-10) Stop: 01/02/18 19:28 Last Admin: 12/31/17 00:06 Dose: 1 tab Physical Exam - Constitutional Appears: Non-toxic - Head Exam Head Exam: NORMAL INSPECTION - Eye Exam Eye Exam: Normal appearance - ENT Exam ENT Exam: Mucous Membranes Moist - Neck Exam Neck exam: Positive for: Full Rom - Respiratory Exam Respiratory Exam: NORMAL BREATHING PATTERN - Cardiovascular Exam Cardiovascular Exam: REGULAR RHYTHM - GI/Abdominal Exam GI & Abdominal Exam: Normal Bowel Sounds - Rectal Exam Rectal Exam: Deferred - Extremities Exam Extremities exam: Negative for: pedal edema - Back Exam Back exam: NORMAL INSPECTION - Neurological Exam Neurological exam: Alert, Oriented x3 - Psychiatric Exam Psychiatric exam: Normal Affect - Skin Skin Exam: Normal Color Results - Vital Signs Recent Vital Signs: Last Vital Signs Temp 97.9 F 12/31/17 07:42 Pulse 64 12/31/17 07:42 Resp 20 12/31/17 07:42 BP 143/75 12/31/17 07:42 Pulse Ox 95 12/31/17 07:42 - Labs Result Diagrams: 12/31/17 04:41 12/31/17 04:41 Labs: Laboratory Results - last 24 hr 12/30/17 12/30/17 12/30/17 19:30 19:59 19:59 WBC 6.1 RBC 4.55 Hgb 13.4 Hct 40.0 MCV 88.0 D MCH 29.4 MCHC 33.4 RDW 14.2 Plt Count 228 MPV 9.6 Neut % (Auto) 72.2 Lymph % (Auto) 17.3 L [place] % (Auto) 2.3 Eos % (Auto) 7.7 H Baso % (Auto) 0.5 Neut # (Auto) 4.4 Lymph # (Auto) 1.0 [place] # (Auto) 0.1 Eos # (Auto) 0.5 Baso # (Auto) 0.0 PT 13.9 H INR 1.3 APTT 33.4 Sodium Potassium Chloride Carbon Dioxide Anion Gap BUN Creatinine Est GFR ( Amer) Est GFR (Non-Af Amer) Random Glucose Calcium Total Bilirubin AST ALT Alkaline Phosphatase Total Protein Albumin Globulin Albumin/Globulin Ratio Blood Type A POSITIVE Antibody Screen Negative BBK History Checked Patient has bt 12/30/17 12/30/17 12/31/17 19:59 19:59 04:41 WBC 5.9 3.9 L RBC 4.66 4.43 Hgb 13.6 13.0 Hct 41.0 39.0 MCV 87.9 88.0 MCH 29.1 29.4 MCHC 33.1 33.4 RDW 14.1 14.2 Plt Count 219 220 MPV 9.4 9.7 Neut % (Auto) 78.1 H 74.2 Lymph % (Auto) 15.1 L 24.8 [place] % (Auto) 1.3 0.9 Eos % (Auto) 5.2 H 0.1 Baso % (Auto) 0.3 0.0 Neut # (Auto) 4.6 2.9 Lymph # (Auto) 0.9 L 1.0 [place] # (Auto) 0.1 0.0 Eos # (Auto) 0.3 0.0 Baso # (Auto) 0.0 0.0 PT INR APTT Sodium 141 Potassium 4.3 Chloride 106 Carbon Dioxide 25 Anion Gap 14 BUN 18 Creatinine 1.2 Est GFR ( Amer) > 60 Est GFR (Non-Af Amer) 58 Random Glucose 127 H Calcium 9.7 Total Bilirubin AST ALT Alkaline Phosphatase Total Protein Albumin Globulin Albumin/Globulin Ratio Blood Type Antibody Screen BBK History Checked 12/31/17 04:41 WBC RBC Hgb Hct MCV MCH MCHC RDW Plt Count MPV Neut % (Auto) Lymph % (Auto) [place] % (Auto) Eos % (Auto) Baso % (Auto) Neut # (Auto) Lymph # (Auto) [place] # (Auto) Eos # (Auto) Baso # (Auto) PT INR APTT Sodium 140 Potassium 4.3 Chloride 106 Carbon Dioxide 27 Anion Gap 11 BUN 21 H Creatinine 1.2 Est GFR ( Amer) > 60 Est GFR (Non-Af Amer) 58 Random Glucose 173 H Calcium 9.6 Total Bilirubin 0.3 AST 29 ALT 23 Alkaline Phosphatase 56 Total Protein 7.8 Albumin 3.8 Globulin 4.0 H Albumin/Globulin Ratio 1.0 Blood Type Antibody Screen BBK History Checked Assessment & Plan (1) Chronic systolic CHF, NYHA class 2 and ALBAN/AHA stage C Assessment and Plan: patient has normal volume status currently. He is medically optimized for the planned hip surgery. Consider transfer to 4N postoperatively. Can place magnet on AICD if electrocautery to be used. Status: Acute (2) CAD (coronary artery disease) Assessment and Plan: well controlled. no active angina or ischemia Status: Chronic (3) Hypertension Assessment and Plan: blood pressure control Status: Chronic
--- NOTE | 2017-12-31 14:01 | CT ---
Date of service: 12/31/2017 PROCEDURE: CT scan of the right hip without contrast HISTORY: rt. hip pain COMPARISON: No recent x-ray exams are available for comparison. There is however a CT scan of the abdomen and pelvis dated May 19, 2011 for comparison. TECHNIQUE: CT scan of the right hip was performed utilizing multiple axial images. Sagittal and coronal reformatted images were also obtained. The examination was performed without contrast. Dose: DLP 453.98 mGy FINDINGS: There is interval change in the appearance of the right hip from the prior CT scan. This would include areas of increased density in the superior right femoral head region, as well as areas of subchondral cyst formation with a large area of subchondral cyst formation seen in the medial right femoral head. Small area of angulation along the lateral margin of the right femoral head and femoral neck is stable from the prior study. In addition there appears to be mild increased bursal fluid surrounding the right hip and extending inferiorly. No appreciable inguinal or pelvic adenopathy is seen. No ascites is seen in the pelvis. Bladder is normal in outline. Prostate gland is mildly enlarged. Visualized bowel is unremarkable. Visualized left hip shows no evidence of fracture or AVN. Pubic rami are intact. No sacroiliac joint widening or sacral insufficiency fracture is seen. Right acetabulum shows no evidence of bone destruction. IMPRESSION: Interval change in appearance of the right femoral head and hip joint with increased subchondral cyst formation and increased density in the right superior femoral head region suggesting possible AVN. Etiology could represent progression of degenerative joint disease, although other inflammatory or infectious process cannot be excluded. There is stable lateral right femoral head and neck acute angle with fracture not suspected. Trochanters are intact. Mild nonspecific right hip bursitis also new from prior study. If infection remains a strong clinical concern, direct aspiration would be suggested. MRI may also prove helpful for further evaluation.
--- NOTE | 2017-12-31 20:23 | CP.PCM.HP ---
History of Present Illness - History of Present Illness History of Present Illness: pt admitted for intractable r hip pain and inability to walk. no f/c, n/v/d. seen by cardio and cleared for or in am w/ ortho for THR. pts pacemaker noted all imaging and bw noted. no distress. pain controlled Present on Admission - Present on Admission Any Indicators Present on Admission: No Review of Systems - Musculoskeletal Musculoskeletal: As Per HPI, Arthralgias Past Patient History - Infectious Disease Hx of Infectious Diseases: None - Past Medical History & Family History Past Medical History?: Yes - Past Social History Smoking Status: Former Smoker - CARDIAC Hx Cardiac Disorders: Yes Hx Atrial Fibrillation: Yes Hx Cardia Arrhythmia: Yes Hx Congestive Heart Failure: Yes (Cardiomyopathy) Hx Hypertension: Yes Hx Pacemaker: Yes (AICD) - PULMONARY Hx Respiratory Disorders: Yes Hx Asthma: Yes Hx Chronic Obstructive Pulmonary Disease (COPD): Yes Hx Emphysema: Yes - NEUROLOGICAL Hx Neurological Disorder: No - HEENT Hx HEENT Problems: No - RENAL Hx Chronic Kidney Disease: No - ENDOCRINE/METABOLIC Hx Endocrine Disorders: No - HEMATOLOGICAL/ONCOLOGICAL Hx Blood Disorders: No Hx AIDS: No - INTEGUMENTARY Hx Dermatological Problems: No - MUSCULOSKELETAL/RHEUMATOLOGICAL Hx Musculoskeletal Disorders: Yes Hx Falls: No - GASTROINTESTINAL Hx Gastrointestinal Disorders: Yes Hx Gastritis: Yes - GENITOURINARY/GYNECOLOGICAL Hx Genitourinary Disorders: No - PSYCHIATRIC Hx Psychophysiologic Disorder: No Hx Substance Use: No - SURGICAL HISTORY Hx Surgeries: Yes Hx Cataract Extraction: Yes Other/Comment: defibillator insertion 2004 - ANESTHESIA Hx Anesthesia: Yes Hx Anesthesia Reactions: No Hx Malignant Hyperthermia: No Has any member of the family had a problem w/ anesthesia?: No Meds Allergies/Adverse Reactions: Allergies Allergy/AdvReac Type Severity Reaction Status Date / Time shellfish derived Allergy RASH Verified 12/30/17 14:21 shrimp Allergy RASH Verified 12/30/17 14:21 Physical Exam - Constitutional Appears: Well, Non-toxic, No Acute Distress - Head Exam Head Exam: ATRAUMATIC, NORMAL INSPECTION, NORMOCEPHALIC - Eye Exam Eye Exam: EOMI, Normal appearance, PERRL Pupil Exam: NORMAL ACCOMODATION, PERRL - ENT Exam ENT Exam: Mucous Membranes Moist, Normal Exam - Neck Exam Neck exam: Positive for: Normal Inspection - Respiratory Exam Respiratory Exam: Clear to Auscultation Bilateral, NORMAL BREATHING PATTERN - Cardiovascular Exam Cardiovascular Exam: REGULAR RHYTHM, RRR, +S1, +S2 - GI/Abdominal Exam GI & Abdominal Exam: Normal Bowel Sounds, Soft. absent: Tenderness - Exam External exam: NORMAL EXTERNAL EXAM Speculum exam: NORMAL SPECULUM EXAM Bimanual exam: NORMAL BIMANUAL EXAM - Extremities Exam Extremities exam: Positive for: full ROM, normal capillary refill, normal inspection, tenderness, pedal pulses present - Back Exam Back exam: NORMAL INSPECTION - Neurological Exam Neurological exam: Alert, CN II-XII Intact, Normal Gait, Oriented x3, Reflexes Normal - Psychiatric Exam Psychiatric exam: Normal Affect, Normal Mood - Skin Skin Exam: Dry, Intact, Normal Color, Warm Results - Vital Signs Recent Vital Signs: Last Vital Signs Temp 98.6 F 12/31/17 16:21 Pulse 73 12/31/17 16:21 Resp 18 12/31/17 16:21 BP 136/66 12/31/17 16:21 Pulse Ox 91 L 12/31/17 16:21 - Labs Result Diagrams: 12/31/17 04:41 12/31/17 04:41 Labs: Laboratory Results - last 24 hr 12/30/17 12/31/17 12/31/17 19:59 04:41 04:41 WBC 3.9 L RBC 4.43 Hgb 13.0 Hct 39.0 MCV 88.0 MCH 29.4 MCHC 33.4 RDW 14.2 Plt Count 220 MPV 9.7 Neut % (Auto) 74.2 Lymph % (Auto) 24.8 Isabella % (Auto) 0.9 Eos % (Auto) 0.1 Baso % (Auto) 0.0 Neut # (Auto) 2.9 Lymph # (Auto) 1.0 Isabella # (Auto) 0.0 Eos # (Auto) 0.0 Baso # (Auto) 0.0 Sodium 140 Potassium 4.3 Chloride 106 Carbon Dioxide 27 Anion Gap 11 BUN 21 H Creatinine 1.2 Est GFR ( Amer) > 60 Est GFR (Non-Af Amer) 58 Random Glucose 173 H Calcium 9.6 Total Bilirubin 0.3 AST 29 ALT 23 Alkaline Phosphatase 56 Total Protein 7.8 Albumin 3.8 Globulin 4.0 H Albumin/Globulin Ratio 1.0 Blood Type A POSITIVE Antibody Screen Negative BBK History Checked Patient has bt Assessment & Plan (1) Osteoarthritis of hip Assessment and Plan: pain control orto cleared for or in am post op-pt/ot/social work for DES Status: Acute (2) Chronic systolic CHF, NYHA class 2 and [place]BAN/AHA stage C Assessment and Plan: cardio cleared for surgery cont home meds Status: Acute (3) DVT prophylaxis Assessment and Plan: scd and ae hose lovenox post op Status: Acute Decision To Admit - Pt Status Changed To: Hospital Disposition Of: Inpatient - Admit Certification Admit to Inpatient:: After my assessment, the patient will require hospitalization for at least two midnights. This is because of the severity of symptoms shown, intensity of services needed, and/or the medical risk in this patient being treated as an outpatient. - . Bed Request Type: Med/Surg Admitting Physician: Dana Luna
[2018-01-01 06:36] LABS: BASO % 0.1 % (0.0-2.0); EOS # 0.1 K/uL (0.0-0.7); EOS % 0.8 % (0.0-4.0); HEMOGLOBIN 12.6 g/dL (12.0-18.0); LYMPH # 2.2 K/uL (1.0-4.3); LYMPH % 27.8 % (20.0-40.0); MEAN CELL VOLUME 87.1 fl (80.0-94.0); MEAN CORPUSCULAR HEMOGLOBIN 29.8 pg (27.0-31.0); MEAN CORPUSCULAR HGB CONC 34.2 g/dL (33.0-37.0); MEAN PLATELET VOLUME 9.6 fl (7.2-11.7); MONO # 0.5 K/uL (0.0-0.8); MONO % 5.8 % (0.0-10.0); NEUT # 5.2 K/uL (1.8-7.0); NEUT % 65.5 % (50.0-75.0); RBC 4.23 Mil/uL (4.40-5.90); RED CELL DISTRIBUTION WIDTH 14.3 % (11.5-14.5); WHITE BLOOD COUNT 7.9 K/uL (4.8-10.8)
[2018-01-01 06:38] LABS: ALB/GLOB RATIO 0.9 (1.0-2.1); ALBUMIN 3.5 g/dL (3.5-5.0); ALT/SGPT 26 U/L (21-72); AST/SGOT 23 U/L (17-59); BLOOD UREA NITROGEN 28 mg/dl (9-20); GFR NON-AFRICAN AMERICAN > 60
[2018-01-01 06:42] LABS: INR 1.2; PROTHROMBIN TIME 13.7 Seconds (9.8-13.1)
[2018-01-01 06:43] LABS: PARTIAL THROMBOPLASTIN TIME 29.2 Seconds (25.6-37.1)
--- NOTE | 2018-01-01 07:26 | CP.PCM.CON ---
History of Present Illness - History of Present Illness History of Present Illness: Orthopedic consult: Dr. Villegas Patient is an 82 y/o male with PMH of HTN, HLD, CAD, COPD, ischemic cardiomyopathy and AICD who presents with severe R hip pain. He reports R hip pain which began 1 month ago without h/o injury or trauma. The pain significantly worsened over the last two weeks prompting his visit to the [facility] ER on 12/23/17. Patient was discharged with pain medication and referred to Dr. Villegas for orthopedic follow up. A few days ago, the pain was so severe prompting his visit to [facility] ER. The severe pain has made it significantly difficult to WB and he has needed crutches to ambulate. The pain is located in the groin and is dull in quality. The pain worsens with movement and alleviates with rest. He denies any radiation of pain, numbness or tingling. He denies CP/SOB/N/V/D/fever/dysuria/melena. Patient has been on steroid therapy for COPD Review of Systems - Review of Systems All systems: reviewed and no additional remarkable complaints except Review of Systems: as per HPI Past Patient History - Infectious Disease Hx of Infectious Diseases: None - Past Medical History & Family History Past Medical History?: Yes Past Family History: Reviewed and not pertinent - Past Social History Smoking Status: Former Smoker Alcohol: None Drugs: Denies - CARDIAC Hx Cardiac Disorders: Yes Hx Atrial Fibrillation: Yes Hx Cardia Arrhythmia: Yes Hx Congestive Heart Failure: Yes (Cardiomyopathy) Hx Hypertension: Yes Hx Pacemaker: Yes (AICD) - PULMONARY Hx Respiratory Disorders: Yes Hx Asthma: Yes Hx Chronic Obstructive Pulmonary Disease (COPD): Yes Hx Emphysema: Yes - NEUROLOGICAL Hx Neurological Disorder: No - HEENT Hx HEENT Problems: No - RENAL Hx Chronic Kidney Disease: No - ENDOCRINE/METABOLIC Hx Endocrine Disorders: No - HEMATOLOGICAL/ONCOLOGICAL Hx Blood Disorders: No Hx AIDS: No - INTEGUMENTARY Hx Dermatological Problems: No - MUSCULOSKELETAL/RHEUMATOLOGICAL Hx Musculoskeletal Disorders: Yes Hx Falls: No - GASTROINTESTINAL Hx Gastrointestinal Disorders: Yes Hx Gastritis: Yes - GENITOURINARY/GYNECOLOGICAL Hx Genitourinary Disorders: No - PSYCHIATRIC Hx Psychophysiologic Disorder: No Hx Substance Use: No - SURGICAL HISTORY Hx Surgeries: Yes Hx Cataract Extraction: Yes Other/Comment: defibillator insertion 2004 - ANESTHESIA Hx Anesthesia: Yes Hx Anesthesia Reactions: No Hx Malignant Hyperthermia: No Has any member of the family had a problem w/ anesthesia?: No Meds Allergies/Adverse Reactions: Allergies Allergy/AdvReac Type Severity Reaction Status Date / Time shellfish derived Allergy RASH Verified 12/30/17 14:21 shrimp Allergy RASH Verified 12/30/17 14:21 - Medications Medications: Current Medications Ketorolac Tromethamine (Toradol) 30 mg IVP Q6 PRN PRN Reason: Pain, moderate (4-7) Losartan Potassium (Cozaar) 50 mg PO DAILY [facility] Mercaptopurine (6-Mp) 100 mg PO DAILY [facility] Mesalamine (Delzicol Dr) 800 mg PO TID [facility] Montelukast Sodium (Singulair) 10 mg PO HS [facility] Last Admin: 12/31/17 21:51 Dose: 10 mg Oxycodone/Acetaminophen (Percocet 5/325 Mg Tab) 1 tab PO Q4 PRN PRN Reason: Pain, severe (8-10) Stop: 01/02/18 19:28 Last Admin: 12/31/17 21:52 Dose: 1 tab Prednisone (Prednisone Tab) 10 mg PO DAILY [facility] Tamsulosin HCl (Flomax) 0.4 mg PO DAILY [facility] Physical Exam - Constitutional Appears: Well, No Acute Distress - Head Exam Head Exam: ATRAUMATIC, NORMOCEPHALIC - Eye Exam Eye Exam: EOMI, Normal appearance, PERRL - ENT Exam ENT Exam: Mucous Membranes Moist - Respiratory Exam Respiratory Exam: Clear to Auscultation Bilateral, NORMAL BREATHING PATTERN - Cardiovascular Exam Cardiovascular Exam: +S1, +S2 - GI/Abdominal Exam GI & Abdominal Exam: Normal Bowel Sounds, Soft - Extremities Exam Additional comments: R hip: no lesions, no masses + groin tenderness, painful ROM sensation intact SP/DP/TN motor intact EHL/FHL/TA/G pedal pulses intact comps soft NT b/l - Neurological Exam Neurological exam: Alert, Oriented x3 - Psychiatric Exam Psychiatric exam: Normal Affect, Normal Mood - Skin Skin Exam: Normal Color, Warm Results - Vital Signs Recent Vital Signs: Last Vital Signs Temp 98.3 F 01/01/18 05:00 Pulse 66 01/01/18 05:00 Resp 19 01/01/18 05:00 BP 145/75 01/01/18 05:00 Pulse Ox 96 01/01/18 05:00 - Labs Result Diagrams: 01/01/18 05:20 01/01/18 05:20 Labs: Laboratory Results - last 24 hr 01/01/18 01/01/18 01/01/18 05:20 05:20 05:20 WBC 7.9 D RBC 4.23 L Hgb 12.6 Hct 36.8 MCV 87.1 MCH 29.8 MCHC 34.2 RDW 14.3 Plt Count 232 MPV 9.6 Neut % (Auto) 65.5 Lymph % (Auto) 27.8 [place] % (Auto) 5.8 Eos % (Auto) 0.8 Baso % (Auto) 0.1 Neut # (Auto) 5.2 Lymph # (Auto) 2.2 [place] # (Auto) 0.5 Eos # (Auto) 0.1 Baso # (Auto) 0.0 PT 13.7 H INR 1.2 APTT 29.2 Sodium 140 Potassium 4.3 Chloride 106 Carbon Dioxide 25 Anion Gap 13 BUN 28 H Creatinine 1.1 Est GFR ( Amer) > 60 Est GFR (Non-Af Amer) > 60 Random Glucose 112 H Calcium 9.0 Total Bilirubin 0.3 AST 23 ALT 26 Alkaline Phosphatase 49 Total Protein 7.5 Albumin 3.5 Globulin 3.9 Albumin/Globulin Ratio 0.9 L Assessment & Plan (1) Avascular necrosis of bone of right hip Assessment and Plan: -OR today for R JULIANNE -NPO -medical and cardiac clearance in chart -Risks/benefits/alternatives were explained in detail to patient who understands and agrees to proceed with above procedure -to be transferred to telemetry postop -above d/w Dr. Villegas in agreement Status: Acute Radiology Interpretation - Notes: Notes:: Accession No. : [id number] Patient Name / ID : MAHI RAYMOND / [id number] Exam Date : 12/31/2017 10:47:17 ( Approved ) Study Comment : Sex / Age : M / 82Y Creator : Radha Hillman MD Dictator : Radha Hillman MD Water Quality Specialist : Concert Manager : Radha Hillman MD Approver2 : Report Date : 12/31/2017 13:54:55 My Comment : Date of service: 12/31/2017 PROCEDURE: CT scan of the right hip without contrast HISTORY: rt. hip pain COMPARISON: No recent x-ray exams are available for comparison. There is however a CT scan of the abdomen and pelvis dated May 19, 2011 for comparison. TECHNIQUE: CT scan of the right hip was performed utilizing multiple axial images. Sagittal and coronal reformatted images were also obtained. The examination was performed without contrast. Dose: DLP 453.98 mGy FINDINGS: There is interval change in the appearance of the right hip from the prior CT scan. This would include areas of increased density in the superior right femoral head region, as well as areas of subchondral cyst formation with a large area of subchondral cyst formation seen in the medial right femoral head. Small area of angulation along the lateral margin of the right femoral head and femoral neck is stable from the prior study. In addition there appears to be mild increased bursal fluid surrounding the right hip and extending inferiorly. No appreciable inguinal or pelvic adenopathy is seen. No ascites is seen in the pelvis. Bladder is normal in outline. Prostate gland is mildly enlarged. Visualized bowel is unremarkable. Visualized left hip shows no evidence of fracture or AVN. Pubic rami are intact. No sacroiliac joint widening or sacral insufficiency fracture is seen. Right acetabulum shows no evidence of bone destruction. IMPRESSION: Interval change in appearance of the right femoral head and hip joint with increased subchondral cyst formation and increased density in the right superior femoral head region suggesting possible AVN. Etiology could represent progression of degenerative joint disease, although other inflammatory or infectious process cannot be excluded. There is stable lateral right femoral head and neck acute angle with fracture not suspected. Trochanters are intact. Mild nonspecific right hip bursitis also new from prior study. If infection remains a strong clinical concern, direct aspiration would be suggested. MRI may also prove helpful for further evaluation.
--- NOTE | 2018-01-01 09:34 | RAD ---
PROCEDURE: Right Hip Radiographs. HISTORY: R hip pain COMPARISON: None. FINDINGS: BONES: No acute fracture or destructive bony lesion identified. JOINTS: Degenerative sclerosis appreciate the bilateral sacral iliac and hip joints which appear [id number] and moderate to severe in severity respectively. No subluxation dislocation or distraction otherwise evident grossly. SOFT TISSUES: Prominent retained fecal material seen throughout the colon suspicious for constipation. OTHER FINDINGS: None. IMPRESSION: No fracture dislocation right hip joint although degenerative changes are moderate severe bilateral hip joints. Incidental constipation suspected throughout large-bowel.
--- NOTE | 2018-01-01 09:38 | RAD ---
Date of service: 01/01/2018 PROCEDURE: Right Femur Radiographs. HISTORY: R hip pain COMPARISON: None. TECHNIQUE: AP and Lateral Radiographs of the right femur. FINDINGS: FEMUR: No fracture or subluxation appreciated. No dislocation. Advanced osteoarthritis is seen the right hip joint once again with large subchondral cyst formation identified at the medial right femoral head. No collapse of the right femoral head identified at this time. Differential diagnosis is osteonecrosis and least likely avascular necrosis. SOFT TISSUES: Normal. OTHER FINDINGS: None. IMPRESSION: Advanced osteoarthtitis suspected at the right hip joint, and right femoral head in particular though osteonecrosis or avascular necrosis are included in the differential diagnosis. No subluxation or dislocation. No acute fracture. Remainder of the right femur appears unremarkable.
[2018-01-01 11:17] LABS: URINE BILIRUBIN NEGATIVE (NEGATIVE); URINE BLOOD NEGATIVE (NEGATIVE); URINE CLARITY CLEAR (Clear); URINE COLOR YELLOW (YELLOW); URINE GLUCOSE (UA) NEG (Normal); URINE LEUKOCYTE ESTERASE NEG Leu/uL (Negative); URINE PROTEIN NEGATIVE (NEGATIVE); URINE UROBILINOGEN 0.2-1.0 mg/dL (0.2-1.0)
--- NOTE | 2018-01-01 12:24 | CP.PCM.PN ---
Subjective - Date & Time of Evaluation Date of Evaluation: 01/01/18 Time of Evaluation: 07:22 - Subjective Subjective: pt doing well. still w/ r hip pain. no f/c, n/v/d. bw noted.cardio cleared for surgery case d/c w/ dr solano and aparan -wong Objective - Vital Signs/Intake and Output Vital Signs (last 24 hours): Temp Pulse Resp BP Pulse Ox 98.5 F 64 19 143/70 96 01/01/18 07:49 01/01/18 09:32 01/01/18 07:49 01/01/18 09:32 01/01/18 07:49 - Medications Medications: Current Medications Ketorolac Tromethamine (Toradol) 30 mg IVP Q6 PRN PRN Reason: Pain, moderate (4-7) Losartan Potassium (Cozaar) 50 mg PO DAILY [facility] Last Admin: 01/01/18 09:32 Dose: 50 mg Mercaptopurine (6-Mp) 100 mg PO DAILY [facility] Last Admin: 01/01/18 09:33 Dose: Not Given Mesalamine (Delzicol Dr) 800 mg PO TID [facility] Last Admin: 01/01/18 09:34 Dose: Not Given Montelukast Sodium (Singulair) 10 mg PO HS [facility] Last Admin: 12/31/17 21:51 Dose: 10 mg Oxycodone/Acetaminophen (Percocet 5/325 Mg Tab) 1 tab PO Q4 PRN PRN Reason: Pain, severe (8-10) Stop: 01/02/18 19:28 Last Admin: 12/31/17 21:52 Dose: 1 tab Prednisone (Prednisone Tab) 10 mg PO DAILY [facility] Last Admin: 01/01/18 09:34 Dose: Not Given Tamsulosin HCl (Flomax) 0.4 mg PO DAILY [facility] Last Admin: 01/01/18 09:34 Dose: Not Given - Labs Labs: 01/01/18 05:20 01/01/18 05:20 PT 13.7 Seconds (9.8-13.1) H 01/01/18 05:20 INR 1.2 01/01/18 05:20 APTT 29.2 Seconds (25.6-37.1) 01/01/18 05:20 - Constitutional Appears: Well, Non-toxic, No Acute Distress - Head Exam Head Exam: ATRAUMATIC, NORMAL INSPECTION, NORMOCEPHALIC - Eye Exam Eye Exam: EOMI, Normal appearance, PERRL Pupil Exam: NORMAL ACCOMODATION, PERRL - ENT Exam ENT Exam: Mucous Membranes Moist, Normal Exam - Neck Exam Neck Exam: Full ROM, Normal Inspection. absent: Lymphadenopathy - Respiratory Exam Respiratory Exam: Clear to Ausculation Bilateral, NORMAL BREATHING PATTERN - Cardiovascular Exam Cardiovascular Exam: REGULAR RHYTHM, RRR, +S1, +S2. absent: Murmur - GI/Abdominal Exam GI & Abdominal Exam: Soft, Normal Bowel Sounds. absent: Tenderness - Extremities Exam Extremities Exam: Full ROM, Normal Capillary Refill, Normal Inspection, Tenderness. absent: Joint Swelling, Pedal Edema Additional comments: r hip pain on palp - Back Exam Back Exam: NORMAL INSPECTION - Neurological Exam Neurological Exam: Alert, Awake, CN II-XII Intact, Normal Gait, Oriented x3 - Psychiatric Exam Psychiatric exam: Normal Affect, Normal Mood - Skin Skin Exam: Dry, Intact, Normal Color, Warm Assessment and Plan (1) Avascular necrosis of bone of right hip Assessment & Plan: for THR pain control ortho pt/ot/sw postop Status: Acute (2) Osteoarthritis of hip Assessment & Plan: ortho thr pain control Status: Acute (3) DVT prophylaxis Assessment & Plan: scd and aehose lovenox postop Status: Acute (4) CAD (coronary artery disease) Assessment & Plan: cardio cleared cont home meds Status: Chronic
[2018-01-01] MEDS ORDERED: Thrombin Topical 5,000 Int Units Spray Kit ONE (13:40)
[2018-01-01] MEDS ORDERED: Absorbable Gelatin Sponge Size 12-7 ONE (13:41)
[2018-01-01] MEDS ORDERED: Succinylcholine 200 mg/10 ml Inj IV ONE (13:48)
[2018-01-01] MEDS ORDERED: Calcium Chloride 1000 mg/10 ml Syringe ONE (13:48)
[2018-01-01] MEDS ORDERED: Rocuronium 10 mg/ml (5 ml) ONE ×2 (13:48→16:44)
--- NOTE | 2018-01-01 13:57 | RAD ---
Date of service: 01/01/2018 PROCEDURE: CHEST RADIOGRAPH, 1 VIEW HISTORY: AICD, COPD, persistent cough COMPARISON: 07/03/2017. FINDINGS: LUNGS: Clear. PLEURA: No pneumothorax or pleural fluid seen. CARDIOVASCULAR: No radiographic findings to suggest acute or significant cardiovascular disease. Position/ configuration of pacemaker device: Satisfactory. OSSEOUS STRUCTURES: No significant abnormalities. VISUALIZED UPPER ABDOMEN: Normal. OTHER FINDINGS: None. IMPRESSION: No active disease. No acute/significant interval changes.
[2018-01-01] MEDS ORDERED: Lactated Ringer's 1,000 ML IV ONE ×2 (14:09)
[2018-01-01] MEDS ORDERED: Sodium Chloride 0.9% 1,000 ML IV ONE ×3 (14:15)
[2018-01-01] MEDS ORDERED: EPINEPHrine 1 mg/ml (1:1000) Inj ONE (15:11)
[2018-01-01] MEDS ORDERED: oxyCODONE 5 mg Immediate Release Tab PO PRN ×2 (15:26→18:09)
[2018-01-01] MEDS ORDERED: Oxycodone/Acetaminophen 5/325 mg Tab PO PRN (15:26)
[2018-01-01] MEDS ORDERED: Sodium Chloride 0.9% 1,000 ML IV SCH (15:30)
[2018-01-01] MEDS ORDERED: Sevoflurane - Inhalation Anesthetic Liq (250 ml) ONE (16:29)
[2018-01-01] MEDS ORDERED: HEMOSTATIC MATRIX 10 ML DIS.NEEDLE TOP ONE (16:46)
[2018-01-01] MEDS ORDERED: Neostigmine 1:1000 (1 mg/ml) Inj ONE (17:19)
[2018-01-01] MEDS ORDERED: Labetalol 5mg/ml (4ml) ONE (17:32)
[2018-01-01] MEDS ORDERED: Bacitracin OINT 15GM TOP ONE (17:45)
--- NOTE | 2018-01-01 17:51 | PCM.SURG1 ---
Surgeon's Initial Post Op Note - Surgeon's Notes Surgeon: Bakari Pocket Cutter: ISAC Jarvis/Chung Lance PA-C Type of Anesthesia: General Endo, Spinal Anesthesia Administered By: DR chaudhary Pre-Operative Diagnosis: Degenerative arthritis R hip. R/O chondroid tumor/ Ro Avascular Necrosis Operative Findings: as above Post-Operative Diagnosis: Degenerative arthrits R hip. Avascular necrosis R Hip Operation Performed: R THR. femoral neck osteotomy. release iliopsoas tendon. autograft / allograft bone graft. computer navigation Specimen/Specimens Removed: bone/cartilage /synovium Estimated Blood Loss: EBL {In ML}: 100 Blood Products Given: N/A Drains Used: No Drains Post-Op Condition: Good Date of Surgery/Procedure: 01/01/18 Time of Surgery/Procedure: 15:45 (time in room 1409/anesthesia indcution time)
[2018-01-01] MEDS ORDERED: HYDROmorphone 1 mg/ml ISec IVP PRN (18:05)
[2018-01-01] MEDS ORDERED: Propofol 10 mg/ml Inj (100 ml) IV ONE (18:10)
[2018-01-01] MEDS ORDERED: Labetalol 5 mg/ml Inj 20ML IV ONE (18:10)
[2018-01-01] MEDS ORDERED: Propofol 10 mg/ml 1,000 MG/100 ML VIAL IV SCH (18:10)
[2018-01-01] MEDS ORDERED: Labetalol 5 mg/ml Inj 20ML IVP ONE (18:13)
[2018-01-01 18:30] LABS: ABG ALLEN TEST YES; ARTERIAL BLOOD GAS HCO3 21.6 mmol/L (21-28); ARTERIAL BLOOD GAS HEMOGLOBIN 13.8 g/dL (11.7-17.4); ARTERIAL BLOOD GAS O2 CAPACITY 19.6 mL/dL (16-24); ARTERIAL BLOOD GAS O2 CONTENT 19.6 ML/dL (15-23); ARTERIAL BLOOD GAS O2 SAT 100.1 % (95-98); ARTERIAL BLOOD GAS PCO2 66 mm/Hg (35-45); ARTERIAL BLOOD GAS PH 7.19 (7.35-7.45); ARTERIAL BLOOD GAS PO2 288 mm/Hg (80-100); ARTERIAL BLOOD GAS TCO2 27.2 mmol/L (22-28)
[2018-01-01 18:35] LABS: HEMOGLOBIN 12.5 g/dL (12.0-18.0); MEAN CELL VOLUME 89.1 fl (80.0-94.0); MEAN CORPUSCULAR HEMOGLOBIN 29.1 pg (27.0-31.0); MEAN CORPUSCULAR HGB CONC 32.6 g/dL (33.0-37.0); RBC 4.28 Mil/uL (4.40-5.90); RED CELL DISTRIBUTION WIDTH 14.7 % (11.5-14.5); WHITE BLOOD COUNT 15.5 K/uL (4.8-10.8)
[2018-01-01 19:59] LABS: ABG ALLEN TEST YES; ARTERIAL BLOOD GAS HCO3 24.1 mmol/L (21-28); ARTERIAL BLOOD GAS HEMOGLOBIN 12.3 g/dL (11.7-17.4); ARTERIAL BLOOD GAS O2 CAPACITY 17.1 mL/dL (16-24); ARTERIAL BLOOD GAS O2 SAT 99.3 % (95-98); ARTERIAL BLOOD GAS PCO2 42 mm/Hg (35-45); ARTERIAL BLOOD GAS PH 7.37 (7.35-7.45); ARTERIAL BLOOD GAS PO2 146 mm/Hg (80-100); ARTERIAL BLOOD GAS TCO2 25.6 mmol/L (22-28)
--- NOTE | 2018-01-01 22:31 | CARD ---
APPROVED REPORT Date of service: 01/01/2018 <Conclusion> Atrial-sensed ventricular-paced rhythm Abnormal ECG
[2018-01-01] MEDS: ceFAZolin 2 GM in Sodium Chloride 0.9% 100 ML IVPB SCH (22:45)
--- NOTE | 2018-01-02 01:52 | PN ---
DATE: 01/01/2018 CRITICAL CARE PROGRESS NOTE LOCATION: The patient in recovery room, being admitted to ICU. REASON FOR ADMISSION: Postop care status post right hip replacement. HISTORY OF PRESENT ILLNESS: History is obtained after reviewing events in ER history physical. Mr. Currie is an 82-year-old male with history of cardiomyopathy, EF about 20%, CHF, pulmonary hypertension, and chronic obstructive pulmonary disease. He is status post permanent pacemaker and biventricular pacer, seen by Cardiology, admitted due to intractable right hip pain, noted to have severe osteoarthritis with pain radiating to the right foot. The patient's surgical history is significant for permanent pacemaker insertion and BiV pacer, underwent right hip replacement under general anesthesia and the operative course was uneventful. Estimated blood loss was about 100 mL. In recovery room, the patient was noted to be tachypneic and could not be extubated, admitted to ICU for further evaluation. PAST MEDICAL HISTORY: As noted above. PAST SURGICAL HISTORY: As noted above. ALLERGIES: NONE DOCUMENTED. SOCIAL HISTORY: Significant reformed smoker. MEDICATIONS: At home include losartan 50 mg daily, mercaptopurine 100 mg p.o. daily, mesalamine 800 mg p.o. three times daily, Singulair 10 mg p.o. at bedtime, prednisone 10 mg p.o. daily, Flomax 0.4 mg p.o. daily. ALLERGIES: TO SHELLFISH AND SHRIMP. PHYSICAL EXAMINATION: GENERAL: An elderly male, alert, but still under the effect of anesthetic medications. VITAL SIGNS: Temperature 98.5, heart rate 64, blood pressure 143/70, oxygen saturation 96% on room air. Intake, output not noted. HEAD, EYES, EARS, NOSE, AND THROAT: Pupils are reactive. Conjunctivae pink. Sclerae white. NECK: Supple. Trachea is central. CHEST: Bilateral breath sounds clear to auscultation. HEART: Rhythm regular. S1, S2 normal. No audible murmur. ABDOMEN: Bowel sounds present. Soft. EXTREMITIES: Venodyne boots in place. Surgical site without soiling. NEUROLOGIC EXAMINATION: Remains sedated and under the effect of anesthetic medication. LABORATORY DATA: WBC 15.5, hemoglobin 12.5, hematocrit 38.2, platelet count of 269. PT 13.7, INR 1.2, PTT 29.2. ABG, pH of 7.19, pCO2 of 66, pO2 of , saturation 100% on FIO2 100%. SMA-7: Sodium 140, potassium 4.3, chloride 106, CO2 25, blood urea nitrogen 28, creatinine 1.1, calcium 9. AST 23, ALT 26, alkaline phosphatase 49, total protein 7.5, albumin 3.5. The 25-hydroxy vitamin D level, 28.8. Urinalysis is negative. Chest x-ray: Lungs, clear. No pneumothorax, no pleural effusion. X-ray, right hip, no fracture or dislocation of right hip joint; degenerative changes, moderate-to- severe, bilateral hip joints. X-ray, femur, advanced osteoarthritis suspected in the right hip joint, right femoral head in particular, though osteonecrosis or avascular necrosis cannot be excluded. CT hip, interval change in appearance of the right femoral head and the hip joint with increased subchondral cyst formation and increased density in the right superior femoral head region suggesting possible avascular necrosis. IMPRESSION: 1. Status post right hip replacement, osteoarthritis, hemodynamically stable. Minimal estimated blood loss. 2. Neurologic: Under sedation from anesthetic medications. 3. Pulmonary: Arterial blood gas postop consistent with CO2 retention. History of chronic obstructive pulmonary disease, to keep intubated overnight and to consider extubation in the morning. 4. Cardiac: History of cardiomyopathy, congestive heart failure with [place] class II, ejection fraction about 20%. Status post biventricular pacer. Congestive heart failure hemodynamically stable. 5. Hematology: Leukocytosis, postop reactive. Hemoglobin, hematocrit stable. 6. Endocrine: No acute issues. 7. Renal: Mildly elevated blood urea nitrogen. 8. Continue analgesics as needed, cefazolin 2 g intravenous every 8 hours x3 doses, vitamin D 1000 international units p.o. daily, Colace 100 mg p.o. b.i.d., ferrous sulfate 325 mg t.i.d., folic acid 1 mg daily, Dilaudid 1 mg IV every 4 hours p.r.n. for pain, losartan 50 mg p.o. daily, mercaptopurine 100 mg p.o. daily, mesalamine 800 mg three times daily, Singulair 10 mg p.o. daily while awake, folic acid 1 mg daily. 9. Monitor postop hemodynamic stability. 10. Occupational therapy, physical therapy when cleared by Surgery. Anticoagulation for deep venous thrombosis prophylaxis once cleared by Surgery. Kevin Gomez MD [facility] # [phone]
[2018-01-02 04:10] LABS: ABG ALLEN TEST YES; ARTERIAL BLOOD GAS HCO3 25.6 mmol/L (21-28); ARTERIAL BLOOD GAS HEMOGLOBIN 11.6 g/dL (11.7-17.4); ARTERIAL BLOOD GAS O2 CAPACITY 16.5 mL/dL (16-24); ARTERIAL BLOOD GAS O2 CONTENT 16.2 ML/dL (15-23); ARTERIAL BLOOD GAS PCO2 39 mm/Hg (35-45); ARTERIAL BLOOD GAS PH 7.42 (7.35-7.45); ARTERIAL BLOOD GAS PO2 182 mm/Hg (80-100); ARTERIAL BLOOD GAS TCO2 26.5 mmol/L (22-28)
[2018-01-02] MEDS: ceFAZolin 2 GM in Sodium Chloride 0.9% 100 ML IVPB SCH (06:08)
[2018-01-02 06:38] LABS: HEMOGLOBIN 12.2 g/dL (12.0-18.0); MEAN CELL VOLUME 88.4 fl (80.0-94.0); MEAN CORPUSCULAR HEMOGLOBIN 29.5 pg (27.0-31.0); MEAN CORPUSCULAR HGB CONC 33.3 g/dL (33.0-37.0); RBC 4.15 Mil/uL (4.40-5.90); RED CELL DISTRIBUTION WIDTH 14.1 % (11.5-14.5); WHITE BLOOD COUNT 7.2 K/uL (4.8-10.8)
[2018-01-02 07:15] LABS: BLOOD UREA NITROGEN 31 mg/dl (9-20); CALCIUM 8.4 mg/dL (8.4-10.2); GFR NON-AFRICAN AMERICAN 58
--- NOTE | 2018-01-02 07:31 | OP ---
PROCEDURE DATE: 01/01/2018 PREOPERATIVE DIAGNOSES: 1. Degenerative arthritis of the right hip. 2. Rule out chondroid tumor. 3. Rule out avascular necrosis. OPERATIVE FINDINGS: 1. Degenerative arthritis of the right hip. 2. 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 3. 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 POSTOPERATIVE DIAGNOSES: 1. Degenerative arthritis of the right hip. 2. Rule out avascular necrosis. 3. Rule out enchondroma/chondroid tumor of femoral neck and intertrochanteric region of the right hip. OPERATIONS PERFORMED: 1. Right total hip replacement arthroplasty. 2. 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 3. Release of iliopsoas tendon. 4. Autograft, allograft, bone graft. 5. Computer navigation. SURGEON: Soren Villegas MD ENTERPRISE CLOUD ARCHITECT: Patricia Romano, certified registered nursing rn first assistant. SECOND WIRE STRETCHER: Chung Lance PA-C SPECIMENS REMOVED: Bone, cartilage, synovium. ESTIMATED BLOOD LOSS: mL. BLOOD PRODUCTS: No blood products given. DRAINS: No drains. POSTOPERATIVE CONDITION: Stable. DATE OF SURGERY: 01/01/2018 TIME OF SURGERY: 1545, incision time. Time in the room 1409. OPERATIVE INDICATIONS: Wesley Currie is an 82-year-old gentleman. I was called on consult by Dr. Luna that the patient had severe pain and restricted range of motion of the hip. The patient was admitted to [facility] on 12/30/2017. The patient was in severe pain, could not ambulate, and range of motion was severely restricted. Workup revealed evidence of avascular necrosis of the hip with degenerative arthritis and there was evidence of chondroid stippling in the area of the intertrochanteric and subtrochanteric region. Pros, cons, risks, and benefits of surgical approach were discussed. Possibility of mechanical failure, infection, thromboembolic disease, later secondary or tertiary surgery were discussed in detail. The patient can no longer withstand the discomfort. The informed consent was obtained through the culturally competent dean of women, Raul. OPERATIVE PROCEDURE: After having obtained informed consent in the above fashion, after having identified side, site, and procedure and critical pause/time-out and after the satisfactory induction of the anesthetic, the patient was identified as Wesley Currie, was placed in the AMIS traction, and all bony prominences were well padded. Under the surgeon's direction, the fluoroscope was positioned. Video images were generated. Therapeutic decisions were made therefrom. This having been accomplished, the right lower extremity was prepped and draped in the AMIS traction in the usual fashion for anterior approach hip surgery. Computer navigation will be accomplished, and the [employer] device was brought to the operating room. This having been accomplished, an incision was described one fingerbreadth distal to the ASIS, three fingerbreadths posteriorly, superficial to the tensor fascia femoris muscle. Cabral-Ocampo interval was identified and great care was taken to stay within the sheath of the tensor fascia femoris. The skin incision was carried down through the skin, subcutaneous tissue, 4.5-inch incision was described. Skin and subcutaneous tissue were divided. The rectus femoris muscle was taken down. At this point in time, the modified Medacta Weitlaner retractor was employed. This having been accomplished, the posterior aspect of the muscle was carefully identified and removed from the fascia. This having been accomplished, the fascia was divided. The anterior branch of the lateral femoral circumflex vessels were identified and controlled with tonsil clamps and they were divided. This having been accomplished, hemostasis was controlled. At this point, a capsulotomy was accomplished extending from the lateral aspect of the acetabular roof. The fat overlying the capsule was removed. Capsulotomy was brought down to the intertrochanteric line and brought laterally. The capsule was tagged and partially released. Medacta retractors were placed. The femoral neck osteotomy was accomplished at approximately 1.8 cm above the lesser trochanter. This having been accomplished, the wound was thoroughly irrigated. External rotation of the extremity was 45 degrees. The osteotome was placed and the femoral neck was removed. Again, there was found to be evidence of chondroid matrix in the area of the femoral neck intertrochanteric region. This will be addressed in preparation of the femur. This having been accomplished, the labrum was excised carefully anteriorly and posteriorly. Arthrotomy and synovectomy were accomplished. The pulvinar was removed. The head was measured to 50 mm, and sequential reaming was carried out to 52 mm in approximately 40 degrees of abduction and approximately 20 degrees of anteversion. Reaming was accomplished. The reamings were denuded of articular cartilage to provide bone graft to the acetabulum. Trialing was accomplished. At this point in time, two #11 blade incisions were made in the anterior-superior iliac spine. The two Steinmann pins were introduced to support the [employer] optical computer navigation. Computer navigation began at this point. The camera was adjusted. Registration was accomplished with the left ASIS and the right ASIS. This having been accomplished, registration having been accomplished, sequential reaming was carried out to 52 mm. Using the Intellijoint, the acetabular inclination was 40 degrees and 20 degrees of anteversion. This having been accomplished, autograft bone grafting to the acetabulum was accomplished, and the Medacta cup was introduced. The position was found be excellent, and the pelvic lift test reveals that the cup was stable and the cup was impacted. Attention was turned to the femur. The femur was externally rotated to approximately 165 degrees. This having been accomplished, femur was found to be relatively mobile. The pubofemoral ligament was carefully released. Great care was taken to control hemostasis at this point in time with the Aquamantys. This having been accomplished, the portion of the ischiofemoral ligament was released. Great care was taken to preserve the piriformis tendon. The release was further accomplished to the iliofemoral ligament and at this point in time with further external rotation, hyperflexion of the femur, the femur was delivered. Adduction was accomplished as well. The canal was found. It should be noted at this point in time that there was an area of chondroid matrix at the medial aspect of the femoral neck extending to the intertrochanteric region. This in all medical probability represents enchondroma. Enchondroma was curetted and an excisional biopsy of the chondroid area was accomplished. In this way, the probable enchondroma was removed. An excisional biopsy of the enchondroma was accomplished and this was sent for culture and biopsy. This having been accomplished, it should be noted that there was no evidence of sepsis in the wound. This having been accomplished, the canal was found using the box chisel with the bur and the rasp. Sequential broaching was carried out to a #4. Trailing was accomplished with a neutral head and 52-mm outer bearing and the dual mobility construct. At this point in time, the verification of position was offered on one AP image intensification view. This having been accomplished, the femoral stem was introduced, #4 Medacta standard ceramic 20-mm head and the 52 mm outer bearing. The hip was reduced, found to be stable in all planes. At this point in time, the wound was thoroughly irrigated. Traction having been removed. Hemostasis controlled with the Aquamantys, and the FloSeal hemostatic agent was employed. The wound having been thoroughly irrigated, verification of position having been accomplished, the wound was closed with 0 Quill followed by Vicryl, gianluca for skin. Compression dressing was applied. OPERATIVE PROCEDURES: 1. Right total hip replacement arthroplasty anterior approach. 2. Excisional biopsy enchondroma/chondroid tumor, femoral neck intertrochanteric region. 3. Release of iliopsoas tendon. 4. Autograft bone grafting to the acetabulum. 5. Computer navigation. The operations could not have been accomplished without the assistantship at every point of Chung DUNHAM and certified nursing rn first assistant, Patricia Romano. Soren Villegas MD
--- NOTE | 2018-01-02 08:01 | CP.PCM.PN ---
Subjective - Date & Time of Evaluation Date of Evaluation: 01/02/18 Time of Evaluation: 08:01 - Subjective Subjective: pt seen in icu sp THR pt intubated with a line present however off sedation am labs and bital signs noted no fcnvd Objective - Vital Signs/Intake and Output Vital Signs (last 24 hours): Temp Pulse Resp BP Pulse Ox 98.9 F 83 17 111/86 99 01/01/18 23:10 01/02/18 06:00 01/02/18 06:00 01/02/18 06:00 01/02/18 06:00 Intake and Output: 01/02/18 01/02/18 06:59 18:59 Intake Total 200 0 Output Total 500 Balance -300 0 - Medications Medications: Current Medications Acetaminophen (Tylenol 325mg Tab) 650 mg PO Q6 [facility] Calcium/Vitamin D (Oscal-D 250 Mg-125 Units Tab) 1 tab PO DAILY [facility] Cholecalciferol (Vitamin D) 1,000 intlu PO DAILY [facility] Docusate Sodium (Colace) 100 mg PO BID [facility] Last Admin: 01/01/18 20:30 Dose: Not Given Enoxaparin Sodium (Lovenox) 40 mg SC Q24H [facility] PRN Reason: Protocol Ferrous Sulfate (Feosol) 325 mg PO TID [facility] Folic Acid (Folic Acid) 1 mg PO DAILY [facility] Hydromorphone HCl (Dilaudid) 1 mg IVP Q4 PRN PRN Reason: Pain, severe (8-10) Last Admin: 01/02/18 06:03 Dose: 1 mg Sodium Chloride (Sodium Chloride 0.9%) 1,000 mls @ 50 mls/hr IV .Q20H [facility] Stop: 01/02/18 11:29 Propofol (Diprivan) 1,000 mg in 100 mls @ 2.273 mls/hr IV .Q24H [facility]; 5 MCG/KG/ MIN PRN Reason: Protocol Stop: 01/02/18 20:43 Last Titration: 01/02/18 07:06 Dose: 0 mcg/kg/min, 0 mls/hr Ketorolac Tromethamine (Toradol) 30 mg IVP Q6 PRN PRN Reason: Pain, moderate (4-7) Losartan Potassium (Cozaar) 50 mg PO DAILY [facility] Last Admin: 01/01/18 09:32 Dose: 50 mg Mercaptopurine (6-Mp) 100 mg PO DAILY [facility] Last Admin: 01/01/18 09:33 Dose: Not Given Mesalamine (Delzicol Dr) 800 mg PO TID [facility] Last Admin: 01/01/18 23:50 Dose: Not Given Montelukast Sodium (Singulair) 10 mg PO HS [facility] Last Admin: 01/01/18 23:51 Dose: Not Given Oxycodone HCl (Oxycodone Immediate Release Tab) 10 mg PO Q4 PRN PRN Reason: Pain, moderate (4-7) Oxycodone HCl (Oxycodone Immediate Release Tab) 5 mg PO Q6 PRN PRN Reason: Pain, Mild (1-3) Prednisone (Prednisone Tab) 10 mg PO DAILY [facility] Last Admin: 01/01/18 09:34 Dose: Not Given Tamsulosin HCl (Flomax) 0.4 mg PO DAILY [facility] Last Admin: 01/01/18 09:34 Dose: Not Given - Labs Labs: 01/02/18 06:00 01/02/18 05:30 PT 13.7 Seconds (9.8-13.1) H 01/01/18 05:20 INR 1.2 01/01/18 05:20 APTT 29.2 Seconds (25.6-37.1) 01/01/18 05:20 - Constitutional Appears: Well, Non-toxic, No Acute Distress - Head Exam Head Exam: ATRAUMATIC, NORMAL INSPECTION, NORMOCEPHALIC - Eye Exam Eye Exam: EOMI, Normal appearance, PERRL Pupil Exam: NORMAL ACCOMODATION, PERRL - ENT Exam ENT Exam: Mucous Membranes Moist, Normal Exam - Neck Exam Neck Exam: Full ROM, Normal Inspection. absent: Lymphadenopathy - Respiratory Exam Respiratory Exam: Clear to Ausculation Bilateral Additional comments: vent care, intubated, settings noted - Cardiovascular Exam Cardiovascular Exam: REGULAR RHYTHM, RRR, +S1, +S2. absent: Murmur - GI/Abdominal Exam GI & Abdominal Exam: Soft, Normal Bowel Sounds. absent: Tenderness - Extremities Exam Extremities Exam: Full ROM, Normal Capillary Refill, Normal Inspection. absent : Joint Swelling, Pedal Edema - Back Exam Back Exam: NORMAL INSPECTION - Neurological Exam Neurological Exam: Abnormal Gait, Alert, Awake, CN II-XII Intact, Oriented x3 - Psychiatric Exam Psychiatric exam: Normal Affect, Normal Mood - Skin Skin Exam: Dry, Intact, Normal Color, Warm Assessment and Plan (1) Avascular necrosis of bone of right hip Assessment & Plan: s/p thr day 1. pain control pt/ot/sw once extubated Status: Acute (2) Osteoarthritis of hip Assessment & Plan: pain control postop day 1 ortho pt/ot Status: Acute (3) DVT prophylaxis Assessment & Plan: scd nad ae hose lovenox Status: Acute (4) CAD (coronary artery disease) Assessment & Plan: cardio cont meds Status: Chronic (5) COPD (chronic obstructive pulmonary disease) Assessment & Plan: remains intubated cpap today off sedation Status: Acute
[2018-01-02 08:39] LABS: ABG ALLEN TEST YES; ARTERIAL BLOOD GAS HCO3 26.2 mmol/L (21-28); ARTERIAL BLOOD GAS HEMOGLOBIN 12.4 g/dL (11.7-17.4); ARTERIAL BLOOD GAS O2 CAPACITY 17.1 mL/dL (16-24); ARTERIAL BLOOD GAS O2 SAT 99.3 % (95-98); ARTERIAL BLOOD GAS PCO2 32 mm/Hg (35-45); ARTERIAL BLOOD GAS PH 7.49 (7.35-7.45); ARTERIAL BLOOD GAS PO2 128 mm/Hg (80-100); ARTERIAL BLOOD GAS TCO2 25.4 mmol/L (22-28)
--- NOTE | 2018-01-02 08:42 | RAD ---
Date of service: 01/01/2018 PROCEDURE: CHEST RADIOGRAPH, 1 VIEW HISTORY: post intubation COMPARISON: 01/01/2018. FINDINGS: The endotracheal tube terminates 4.9 cm proximal to the max. LUNGS: The lungs are well inflated and clear. PLEURA: No pneumothorax or pleural fluid seen. CARDIOVASCULAR: The heart is normal in size. Atherosclerotic aortic arch calcifications are present. There is stable position of left-sided permanent pacing device. OSSEOUS STRUCTURES: Within normal limits for the patient's age. VISUALIZED UPPER ABDOMEN: Normal. OTHER FINDINGS: None. IMPRESSION: Endotracheal tube terminates 4.9 cm proximal to the max. No acute findings.
--- NOTE | 2018-01-02 08:52 | RAD ---
Date of service: 01/02/2018 HISTORY: on mechanical ventilator COMPARISON: 01/01/2018 FINDINGS: Endotracheal tube terminates 3.4 cm proximal to the max. LUNGS: The lungs are well inflated and clear. PLEURA: No significant pleural effusion identified, no pneumothorax apparent. CARDIOVASCULAR: The heart is normal in size. There is stable position of left-sided permanent pacing device. OSSEOUS STRUCTURES: No significant abnormalities. VISUALIZED UPPER ABDOMEN: Normal. OTHER FINDINGS: None. IMPRESSION: No active pulmonary disease. No interval change.
--- NOTE | 2018-01-02 09:00 | CP.CCUPN ---
CCU Subjective - Physician Review Events Since Last Encounter (Free Text): 01/02/18 14:51 The patient was Seen/interviewed and examined by me at the bedside during ICU round, Medical records reviewed and Management issues were discussed and formulated with the house staff. Events reviewed 82 Years old Male with PMHx of COPD, CAD, osteoarthritis and Avascular necrosis of bone of right hip Who presented to the Emergency department with Right leg pain POD #1 S/P R THR. Patient successfully extubated this morning This morning he feels well and is hemodynamically stable Denies any chest pain, SOB or Palpitations and the plan is to transfer out of the ICU. 01/02/18 15:11 Pain control IV Hydration Started on liquid diet, Advance as tolerate Restart outpatient meds BD nebs q 6h prn PRN Ondansetron PT/OT PER ORTHO GI/DVT PPX with SCDs, LMWH CCU Objective - Vital Signs / Intake & Output Vital Signs (Last 4 hours): Vital Signs Pulse Resp BP Pulse Ox 01/02/18 06:00 83 17 111/86 99 01/02/18 05:15 91 H 15 129/75 100 Intake and Output (Last 8hrs): Intake & Output 01/01/18 01/02/18 01/02/18 22:59 06:59 14:59 Intake Total 100 100 0 Output Total 500 Balance 100 -400 0 Weight 164 lb 5 oz Intake: IV 0 0 0 Intake, Piggyback 100 100 Output: Urine 500 Straight 500 - Physical Exam Head: Positive for: Atraumatic, Normocephalic Pupils: Positive for: PERRL Extroacular Muscles: Positive for: EOMI Conjunctiva: Positive for: Normal Mouth: Positive for: Moist Mucous Membranes Neck: Positive for: Normal Range of Motion Respiratory/Chest: Positive for: Clear to Auscultation Cardiovascular: Positive for: Regular Rate and Rhythm, Normal S1, S2 Abdomen: Positive for: Normal Bowel Sounds Rectal: Positive for: Normal Rectal Tone Back: Positive for: Pain with Leg Raise Upper Extremity: Positive for: Normal ROM, Norm 2-Pt Discrimination Lower Extremity: Positive for: NORMAL PULSES, Swelling (R>L) Neurological: Positive for: CN II-XII Intact, Speech Normal, Motor Func Grossly Intact, Normal Sensory Function, Other (Decreased sensation at top of Right foot and anteromedial thigh) Skin: Positive for: Normal Color Psychiatric: Positive for: Alert, Oriented x 3 - Medications Active Medications: Active Medications Generic Name Dose Route Start Last Admin Trade Name Freq PRN Reason Stop Dose Admin Acetaminophen 650 mg 01/01/18 16:00 Tylenol 325mg Tab PO Q6 [facility] Calcium/Vitamin D 1 tab 01/02/18 09:00 Oscal-D 250 Mg-125 Units Tab PO DAILY [facility] Cholecalciferol 1,000 intlu 01/02/18 09:00 Vitamin D PO DAILY [facility] Docusate Sodium 100 mg 01/01/18 17:00 01/01/18 20:30 Colace PO Not Given BID [facility] Enoxaparin Sodium 40 mg 01/02/18 18:00 Lovenox SC Q24H [facility] Protocol Ferrous Sulfate 325 mg 01/02/18 09:00 Feosol PO TID [facility] Folic Acid 1 mg 01/02/18 09:00 Folic Acid PO DAILY [facility] Hydromorphone HCl 1 mg 01/01/18 21:00 01/02/18 06:03 Dilaudid IVP 1 mg Q4 PRN Administration Pain, severe (8-10) Sodium Chloride 1,000 mls @ 50 mls/hr 01/01/18 15:30 Sodium Chloride 0.9% IV 01/02/18 11:29 .Q20H [facility] Propofol 1,000 mg in 100 mls @ 2.273 mls/hr 01/01/18 18:10 01/02/18 07:06 Diprivan IV 01/02/18 20:43 0 mcg/kg/min .Q24H [facility] 0 mls/hr Protocol Titration 5 MCG/KG/MIN Ketorolac Tromethamine 30 mg 12/30/17 19:27 Toradol IVP Q6 PRN Pain, moderate (4-7) Losartan Potassium 50 mg 01/01/18 09:00 01/01/18 09:32 Cozaar PO 50 mg DAILY [facility] Administration Mercaptopurine 100 mg 01/01/18 09:00 01/01/18 09:33 6-Mp PO Not Given DAILY [facility] Mesalamine 800 mg 01/01/18 09:00 01/01/18 23:[address] PO Not Given TID [facility] Montelukast Sodium 10 mg 12/31/17 22:00 01/01/18 23:51 Singulair PO Not Given HS [facility] Oxycodone HCl 10 mg 01/01/18 18:08 Oxycodone Immediate Release Tab PO Q4 PRN Pain, moderate (4-7) Oxycodone HCl 5 mg 01/01/18 18:09 Oxycodone Immediate Release Tab PO Q6 PRN Pain, Mild (1-3) Prednisone 10 mg 01/01/18 09:00 01/01/18 09:34 Prednisone Tab PO Not Given DAILY [facility] Tamsulosin HCl 0.4 mg 01/01/18 09:00 01/01/18 09:34 Flomax PO Not Given DAILY [facility] - Patient Studies Lab Studies: Lab Studies 01/02/18 01/02/18 01/02/18 Range/Units 08:27 06:00 05:30 WBC 7.2 D (4.8-10.8) K/uL RBC 4.15 L (4.40-5.90) Mil/uL Hgb 12.2 (12.0-18.0) g/dL Hct 36.6 (35.0-51.0) % MCV 88.4 (80.0-94.0) fl MCH 29.5 (27.0-31.0) pg MCHC 33.3 (33.0-37.0) g/dL RDW 14.1 (11.5-14.5) % Plt Count 194 (130-400) K/uL pCO2 32 L (35-45) mm/Hg pO2 128 H (80-100) mm/Hg HCO3 26.2 (21-28) mmol/L ABG pH 7.49 H (7.35-7.45) ABG Total CO2 25.4 (22-28) mmol/L ABG O2 Saturation 99.3 H (95-98) % ABG O2 Content 17.0 (15-23) ML/dL ABG Base Excess 1.6 (-2.0-3.0) mmol/L ABG Hemoglobin 12.4 (11.7-17.4) g/dL ABG Carboxyhemoglobin 1.3 (0.5-1.5) % POC ABG HHb (Measured) 0.7 (0.0-5.0) % ABG Methemoglobin 1.5 (0.0-3.0) % ABG O2 Capacity 17.1 (16-24) mL/dL Zacarias Test Yes A-a O2 Difference 117.0 mm/Hg Hgb O2 Saturation 96.5 (95.0-98.0) % Vent Mode Cpap/ps Mechanical Rate FiO2 40.0 % Tidal Volume PEEP 5 Pressure Support 10 Crit Value Called To Crit Value Called By Crit Value Read Back Blood Gas Notified Time Sodium 139 (132-148) mmol/l Potassium 4.6 (3.6-5.0) MMOL/L Chloride 107 (98-107) mmol/L Carbon Dioxide 26 (22-30) mmol/L Anion Gap 11 (10-20) BUN 31 H (9-20) mg/dl Creatinine 1.2 (0.8-1.5) mg/dl Est GFR ( Amer) > 60 Est GFR (Non-Af Amer) 58 Random Glucose 110 (75-110) mg/dL Calcium 8.4 (8.4-10.2) mg/dL 25-OH Vitamin D Total (30.0-100.0) NG/ML Urine Color (YELLOW) Urine Clarity (Clear) Urine pH (5.0-8.0) Ur Specific [place] (1.003-1.030) Urine Protein (NEGATIVE) mg/dL Urine Glucose (UA) (Normal) mg/dL Urine Ketones (NEGATIVE) mg/dL Urine Blood (NEGATIVE) Urine Nitrate (NEGATIVE) Urine Bilirubin (NEGATIVE) Urine Urobilinogen (0.2-1.0) mg/dL Ur Leukocyte Esterase (Negative) Jazzmine/uL Urine RBC (Auto) (0-3) /hpf Urine Microscopic WBC (0-5) /hpf Blood Type Antibody Screen Crossmatch BBK History Checked 01/02/18 01/01/18 01/01/18 Range/Units 04:07 19:55 18:28 WBC 15.5 H D (4.8-10.8) K/uL RBC 4.28 L (4.40-5.90) Mil/uL Hgb 12.5 (12.0-18.0) g/dL Hct 38.2 (35.0-51.0) % MCV 89.1 D (80.0-94.0) fl MCH 29.1 (27.0-31.0) pg MCHC 32.6 L (33.0-37.0) g/dL RDW 14.7 H (11.5-14.5) % Plt Count 269 (130-400) K/uL pCO2 39 42 (35-45) mm/Hg pO2 182 H 146 H (80-100) mm/Hg HCO3 25.6 24.1 (21-28) mmol/L ABG pH 7.42 7.37 (7.35-7.45) ABG Total CO2 26.5 25.6 (22-28) mmol/L ABG O2 Saturation 98.0 99.3 H (95-98) % ABG O2 Content 16.2 17.0 (15-23) ML/dL ABG Base Excess 0.8 -1.0 (-2.0-3.0) mmol/L ABG Hemoglobin 11.6 L 12.3 (11.7-17.4) g/dL ABG Carboxyhemoglobin 0.1 L 1.2 (0.5-1.5) % POC ABG HHb (Measured) 2.0 0.7 (0.0-5.0) % ABG Methemoglobin 0.7 1.5 (0.0-3.0) % ABG O2 Capacity 16.5 17.1 (16-24) mL/dL Zacarias Test Yes Yes A-a O2 Difference 126.0 158.0 mm/Hg Hgb O2 Saturation 97.2 96.6 (95.0-98.0) % Vent Mode Prvc simv Mechanical Rate 14 FiO2 50.0 50.0 % Tidal Volume 450 PEEP 5 Pressure Support Crit Value Called To Crit Value Called By Crit Value Read Back Blood Gas Notified Time Sodium (132-148) mmol/l Potassium (3.6-5.0) MMOL/L Chloride (98-107) mmol/L Carbon Dioxide (22-30) mmol/L Anion Gap (10-20) BUN (9-20) mg/dl Creatinine (0.8-1.5) mg/dl Est GFR ( Amer) Est GFR (Non-Af Amer) Random Glucose (75-110) mg/dL Calcium (8.4-10.2) mg/dL 25-OH Vitamin D Total (30.0-100.0) NG/ML Urine Color (YELLOW) Urine Clarity (Clear) Urine pH (5.0-8.0) Ur Specific [place] (1.003-1.030) Urine Protein (NEGATIVE) mg/dL Urine Glucose (UA) (Normal) mg/dL Urine Ketones (NEGATIVE) mg/dL Urine Blood (NEGATIVE) Urine Nitrate (NEGATIVE) Urine Bilirubin (NEGATIVE) Urine Urobilinogen (0.2-1.0) mg/dL Ur Leukocyte Esterase (Negative) Jazzmine/uL Urine RBC (Auto) (0-3) /hpf Urine Microscopic WBC (0-5) /hpf Blood Type Antibody Screen Crossmatch BBK History Checked 01/01/18 01/01/18 01/01/18 Range/Units 18:25 11:00 08:07 WBC (4.8-10.8) K/uL RBC (4.40-5.90) Mil/uL Hgb (12.0-18.0) g/dL Hct (35.0-51.0) % MCV (80.0-94.0) fl MCH (27.0-31.0) pg MCHC (33.0-37.0) g/dL RDW (11.5-14.5) % Plt Count (130-400) K/uL pCO2 66 H (35-45) mm/Hg pO2 288 H (80-100) mm/Hg HCO3 21.6 (21-28) mmol/L ABG pH 7.19 L* (7.35-7.45) ABG Total CO2 27.2 (22-28) mmol/L ABG O2 Saturation 100.1 H (95-98) % ABG O2 Content 19.6 (15-23) ML/dL ABG Base Excess -4.3 L (-2.0-3.0) mmol/L ABG Hemoglobin 13.8 (11.7-17.4) g/dL ABG Carboxyhemoglobin 1.4 (0.5-1.5) % POC ABG HHb (Measured) -0.1 L (0.0-5.0) % ABG Methemoglobin 1.4 (0.0-3.0) % ABG O2 Capacity 19.6 (16-24) mL/dL Zacarias Test Yes A-a O2 Difference 343.0 mm/Hg Hgb O2 Saturation 97.3 (95.0-98.0) % Vent Mode Mechanical Rate FiO2 100.0 % Tidal Volume PEEP Pressure Support Crit Value Called To Tamela delarosa Crit Value Called By 23 Crit Value Read Back Y Blood Gas Notified Time 1825 Sodium (132-148) mmol/l Potassium (3.6-5.0) MMOL/L Chloride (98-107) mmol/L Carbon Dioxide (22-30) mmol/L Anion Gap (10-20) BUN (9-20) mg/dl Creatinine (0.8-1.5) mg/dl Est GFR ( Amer) Est GFR (Non-Af Amer) Random Glucose (75-110) mg/dL Calcium (8.4-10.2) mg/dL 25-OH Vitamin D Total 28.8 L (30.0-100.0) NG/ML Urine Color Yellow (YELLOW) Urine Clarity Clear (Clear) Urine pH 7.0 (5.0-8.0) Ur Specific [place] 1.013 (1.003-1.030) Urine Protein Negative (NEGATIVE) mg/dL Urine Glucose (UA) Neg (Normal) mg/dL Urine Ketones Negative (NEGATIVE) mg/dL Urine Blood Negative (NEGATIVE) Urine Nitrate Negative (NEGATIVE) Urine Bilirubin Negative (NEGATIVE) Urine Urobilinogen 0.2-1.0 (0.2-1.0) mg/dL Ur Leukocyte Esterase Neg (Negative) Jazzmine/uL Urine RBC (Auto) < 1 (0-3) /hpf Urine Microscopic WBC 1 (0-5) /hpf Blood Type Antibody Screen Crossmatch BBK History Checked 12/30/17 Range/Units 19:59 WBC (4.8-10.8) K/uL RBC (4.40-5.90) Mil/uL Hgb (12.0-18.0) g/dL Hct (35.0-51.0) % MCV (80.0-94.0) fl MCH (27.0-31.0) pg MCHC (33.0-37.0) g/dL RDW (11.5-14.5) % Plt Count (130-400) K/uL pCO2 (35-45) mm/Hg pO2 (80-100) mm/Hg HCO3 (21-28) mmol/L ABG pH (7.35-7.45) ABG Total CO2 (22-28) mmol/L ABG O2 Saturation (95-98) % ABG O2 Content (15-23) ML/dL ABG Base Excess (-2.0-3.0) mmol/L ABG Hemoglobin (11.7-17.4) g/dL ABG Carboxyhemoglobin (0.5-1.5) % POC ABG HHb (Measured) (0.0-5.0) % ABG Methemoglobin (0.0-3.0) % ABG O2 Capacity (16-24) mL/dL Zacarias Test A-a O2 Difference mm/Hg Hgb O2 Saturation (95.0-98.0) % Vent Mode Mechanical Rate FiO2 % Tidal Volume PEEP Pressure Support Crit Value Called To Crit Value Called By Crit Value Read Back Blood Gas Notified Time Sodium (132-148) mmol/l Potassium (3.6-5.0) MMOL/L Chloride (98-107) mmol/L Carbon Dioxide (22-30) mmol/L Anion Gap (10-20) BUN (9-20) mg/dl Creatinine (0.8-1.5) mg/dl Est GFR ( Amer) Est GFR (Non-Af Amer) Random Glucose (75-110) mg/dL Calcium (8.4-10.2) mg/dL 25-OH Vitamin D Total (30.0-100.0) NG/ML Urine Color (YELLOW) Urine Clarity (Clear) Urine pH (5.0-8.0) Ur Specific [place] (1.003-1.030) Urine Protein (NEGATIVE) mg/dL Urine Glucose (UA) (Normal) mg/dL Urine Ketones (NEGATIVE) mg/dL Urine Blood (NEGATIVE) Urine Nitrate (NEGATIVE) Urine Bilirubin (NEGATIVE) Urine Urobilinogen (0.2-1.0) mg/dL Ur Leukocyte Esterase (Negative) Jazzmine/uL Urine RBC (Auto) (0-3) /hpf Urine Microscopic WBC (0-5) /hpf Blood Type A POSITIVE Antibody Screen Negative Crossmatch See Detail BBK History Checked Patient has bt Laboratory Results - last 24 hr 12/30/17 01/01/18 01/01/18 19:59 08:07 11:00 WBC RBC Hgb Hct MCV MCH MCHC RDW Plt Count pCO2 pO2 HCO3 ABG pH ABG Total CO2 ABG O2 Saturation ABG O2 Content ABG Base Excess ABG Hemoglobin ABG Carboxyhemoglobin POC ABG HHb (Measured) ABG Methemoglobin ABG O2 Capacity Zacarias Test A-a O2 Difference Hgb O2 Saturation Vent Mode Mechanical Rate FiO2 Tidal Volume PEEP Pressure Support Crit Value Called To Crit Value Called By Crit Value Read Back Blood Gas Notified Time Sodium Potassium Chloride Carbon Dioxide Anion Gap BUN Creatinine Est GFR ( Amer) Est GFR (Non-Af Amer) Random Glucose Calcium 25-OH Vitamin D Total 28.8 L Urine Color Yellow Urine Clarity Clear Urine pH 7.0 Ur Specific [place] 1.013 Urine Protein Negative Urine Glucose (UA) Neg Urine Ketones Negative Urine Blood Negative Urine Nitrate Negative Urine Bilirubin Negative Urine Urobilinogen 0.2-1.0 Ur Leukocyte Esterase Neg Urine RBC (Auto) < 1 Urine Microscopic WBC 1 Blood Type A POSITIVE Antibody Screen Negative Crossmatch See Detail BBK History Checked Patient has bt 01/01/18 01/01/18 01/01/18 18:25 18:28 19:55 WBC 15.5 H D RBC 4.28 L Hgb 12.5 Hct 38.2 MCV 89.1 D MCH 29.1 MCHC 32.6 L RDW 14.7 H Plt Count 269 pCO2 66 H 42 pO2 288 H 146 H HCO3 21.6 24.1 ABG pH 7.19 L* 7.37 ABG Total CO2 27.2 25.6 ABG O2 Saturation 100.1 H 99.3 H ABG O2 Content 19.6 17.0 ABG Base Excess -4.3 L -1.0 ABG Hemoglobin 13.8 12.3 ABG Carboxyhemoglobin 1.4 1.2 POC ABG HHb (Measured) -0.1 L 0.7 ABG Methemoglobin 1.4 1.5 ABG O2 Capacity 19.6 17.1 Zacarias Test Yes Yes A-a O2 Difference 343.0 158.0 Hgb O2 Saturation 97.3 96.6 Vent Mode Mechanical Rate FiO2 100.0 50.0 Tidal Volume PEEP Pressure Support Crit Value Called To Tamela delarosa Crit Value Called By 23 Crit Value Read Back Y Blood Gas Notified Time 182 Sodium Potassium Chloride Carbon Dioxide Anion Gap BUN Creatinine Est GFR ( Amer) Est GFR (Non-Af Amer) Random Glucose Calcium 25-OH Vitamin D Total Urine Color Urine Clarity Urine pH Ur Specific [place] Urine Protein Urine Glucose (UA) Urine Ketones Urine Blood Urine Nitrate Urine Bilirubin Urine Urobilinogen Ur Leukocyte Esterase Urine RBC (Auto) Urine Microscopic WBC Blood Type Antibody Screen Crossmatch BBK History Checked 01/02/18 01/02/18 01/02/18 04:07 05:30 06:00 WBC 7.2 D RBC 4.15 L Hgb 12.2 Hct 36.6 MCV 88.4 MCH 29.5 MCHC 33.3 RDW 14.1 Plt Count 194 pCO2 39 pO2 182 H HCO3 25.6 ABG pH 7.42 ABG Total CO2 26.5 ABG O2 Saturation 98.0 ABG O2 Content 16.2 ABG Base Excess 0.8 ABG Hemoglobin 11.6 L ABG Carboxyhemoglobin 0.1 L POC ABG HHb (Measured) 2.0 ABG Methemoglobin 0.7 ABG O2 Capacity 16.5 Zacarias Test Yes A-a O2 Difference 126.0 Hgb O2 Saturation 97.2 Vent Mode Prvc simv Mechanical Rate 14 FiO2 50.0 Tidal Volume 450 PEEP 5 Pressure Support Crit Value Called To Crit Value Called By Crit Value Read Back Blood Gas Notified Time Sodium 139 Potassium 4.6 Chloride 107 Carbon Dioxide 26 Anion Gap 11 BUN 31 H Creatinine 1.2 Est GFR ( Amer) > 60 Est GFR (Non-Af Amer) 58 Random Glucose 110 Calcium 8.4 25-OH Vitamin D Total Urine Color Urine Clarity Urine pH Ur Specific [place] Urine Protein Urine Glucose (UA) Urine Ketones Urine Blood Urine Nitrate Urine Bilirubin Urine Urobilinogen Ur Leukocyte Esterase Urine RBC (Auto) Urine Microscopic WBC Blood Type Antibody Screen Crossmatch BBK History Checked 01/02/18 08:27 WBC RBC Hgb Hct MCV MCH MCHC RDW Plt Count pCO2 32 L pO2 128 H HCO3 26.2 ABG pH 7.49 H ABG Total CO2 25.4 ABG O2 Saturation 99.3 H ABG O2 Content 17.0 ABG Base Excess 1.6 ABG Hemoglobin 12.4 ABG Carboxyhemoglobin 1.3 POC ABG HHb (Measured) 0.7 ABG Methemoglobin 1.5 ABG O2 Capacity 17.1 Zacarias Test Yes A-a O2 Difference 117.0 Hgb O2 Saturation 96.5 Vent Mode Cpap/ps Mechanical Rate FiO2 40.0 Tidal Volume PEEP 5 Pressure Support 10 Crit Value Called To Crit Value Called By Crit Value Read Back Blood Gas Notified Time Sodium Potassium Chloride Carbon Dioxide Anion Gap BUN Creatinine Est GFR ( Amer) Est GFR (Non-Af Amer) Random Glucose Calcium 25-OH Vitamin D Total Urine Color Urine Clarity Urine pH Ur Specific [place] Urine Protein Urine Glucose (UA) Urine Ketones Urine Blood Urine Nitrate Urine Bilirubin Urine Urobilinogen Ur Leukocyte Esterase Urine RBC (Auto) Urine Microscopic WBC Blood Type Antibody Screen Crossmatch BBK History Checked Critical Care Progress Note - Nutrition Nutrition: Nutrition Category Date Time Status NPO Diet [DIET] Diets 01/01/18 Dinner Active Assessment/Plan (1) Avascular necrosis of bone of right hip Current Visit: Yes Status: Acute Priority: High (2) COPD (chronic obstructive pulmonary disease) Current Visit: Yes Status: Acute (3) Cardiomyopathy Current Visit: No Status: Acute Priority: High (4) CAD (coronary artery disease) Current Visit: No Status: Chronic Priority: High
--- NOTE | 2018-01-02 09:01 | PCM.PROC ---
Procedures Attestation:: I certify that I have explained the specified Operation(s) or Procedure(s), risks, benefits and reasonable alternatives to the Patient and/or other person responsible. The opportunity was given to ask questions and all questions answered - Extubation Clinical Parameters: Resolution/Stabilization of disease process, Hemodynamically Stable, Intact Cough/Gag Reflex, Spontaneous Respirations, Acceptable Vent Settings (FIO2<50%, PEEP<8, PaO2>75, pH>7.25) Weaning Criteria Met: Yes General Weaning Approaches: Pressure Support Ventilation (PSV) Weaning Patient Condition: Patient has been successfully extubated and assessed Oxygen Therapy: O2 via Venti Mask Patient Tolerated Procedure: Well, No Complications
--- NOTE | 2018-01-02 09:07 | CP.PCM.PN ---
Subjective - Date & Time of Evaluation Date of Evaluation: 01/02/18 Time of Evaluation: 07:45 - Subjective Subjective: Patient seen and examined at bedside comfortable. Patient is still intubated. Slow progression of extubation due to COPD. However he is responding to questions and following commands. Planned to switch to CPAP this AM. No acute events overnight. Objective - Vital Signs/Intake and Output Vital Signs (last 24 hours): Temp Pulse Resp BP Pulse Ox 98.9 F 83 17 111/86 99 01/01/18 23:10 01/02/18 06:00 01/02/18 06:00 01/02/18 06:00 01/02/18 06:00 Intake and Output: 01/02/18 01/02/18 06:59 18:59 Intake Total 200 0 Output Total 500 Balance -300 0 - Medications Medications: Current Medications Acetaminophen (Tylenol 325mg Tab) 650 mg PO Q6 COUNTS INCLUDE 234 BEDS AT THE [facility] Calcium/Vitamin D (Oscal-D 250 Mg-125 Units Tab) 1 tab PO DAILY COUNTS INCLUDE 234 BEDS AT THE [facility] Cholecalciferol (Vitamin D) 1,000 intlu PO DAILY COUNTS INCLUDE 234 BEDS AT THE [facility] Docusate Sodium (Colace) 100 mg PO BID COUNTS INCLUDE 234 BEDS AT THE [facility] Last Admin: 01/01/18 20:30 Dose: Not Given Enoxaparin Sodium (Lovenox) 40 mg SC Q24H [facility] PRN Reason: Protocol Ferrous Sulfate (Feosol) 325 mg PO TID COUNTS INCLUDE 234 BEDS AT THE [facility] Folic Acid (Folic Acid) 1 mg PO DAILY COUNTS INCLUDE 234 BEDS AT THE [facility] Hydromorphone HCl (Dilaudid) 1 mg IVP Q4 PRN PRN Reason: Pain, severe (8-10) Last Admin: 01/02/18 06:03 Dose: 1 mg Sodium Chloride (Sodium Chloride 0.9%) 1,000 mls @ 50 mls/hr IV .Q20H [facility] Stop: 01/02/18 11:29 Propofol (Diprivan) 1,000 mg in 100 mls @ 2.273 mls/hr IV .Q24H [facility]; 5 MCG/KG/ MIN PRN Reason: Protocol Stop: 01/02/18 20:43 Last Titration: 01/02/18 07:06 Dose: 0 mcg/kg/min, 0 mls/hr Ketorolac Tromethamine (Toradol) 30 mg IVP Q6 PRN PRN Reason: Pain, moderate (4-7) Losartan Potassium (Cozaar) 50 mg PO DAILY COUNTS INCLUDE 234 BEDS AT THE [facility] Last Admin: 01/01/18 09:32 Dose: 50 mg Mercaptopurine (6-Mp) 100 mg PO DAILY COUNTS INCLUDE 234 BEDS AT THE [facility] Last Admin: 01/01/18 09:33 Dose: Not Given Mesalamine (Delzicol Dr) 800 mg PO TID COUNTS INCLUDE 234 BEDS AT THE [facility] Last Admin: 01/01/18 23:50 Dose: Not Given Montelukast Sodium (Singulair) 10 mg PO HS COUNTS INCLUDE 234 BEDS AT THE [facility] Last Admin: 01/01/18 23:51 Dose: Not Given Oxycodone HCl (Oxycodone Immediate Release Tab) 10 mg PO Q4 PRN PRN Reason: Pain, moderate (4-7) Oxycodone HCl (Oxycodone Immediate Release Tab) 5 mg PO Q6 PRN PRN Reason: Pain, Mild (1-3) Prednisone (Prednisone Tab) 10 mg PO DAILY COUNTS INCLUDE 234 BEDS AT THE [facility] Last Admin: 01/01/18 09:34 Dose: Not Given Tamsulosin HCl (Flomax) 0.4 mg PO DAILY COUNTS INCLUDE 234 BEDS AT THE [facility] Last Admin: 01/01/18 09:34 Dose: Not Given - Labs Labs: 01/02/18 06:00 01/02/18 05:30 PT 13.7 Seconds (9.8-13.1) H 01/01/18 05:20 INR 1.2 01/01/18 05:20 APTT 29.2 Seconds (25.6-37.1) 01/01/18 05:20 - Extremities Exam Additional comments: R hip: mild swelling, mild tenderness Aquacel CDI sensation intact SP/DP/TN motor intact EHL/FHL/TA/G pedal pulses intact comps soft NT b/l Assessment and Plan (1) Avascular necrosis of bone of right hip Assessment & Plan: POD #1 s/p R JULIANNE -complete postop abx -DVT ppx -PT/OT WBAT once appropriate, encourage OOB -discharge planning -above d/w Dr. Villegas in agreement Status: Acute
[2018-01-02] MEDS: Calcium-Vit D 250 mg-125 Units Tab UD PO SCH (14:00)
[2018-01-02] MEDS: Cholecalciferol 1,000 INTLU TAB PO SCH (14:01)
--- NOTE | 2018-01-02 15:20 | RAD ---
PROCEDURE: Right Hip Radiographs. HISTORY: s/p R JULIANNE COMPARISON: None. FINDINGS: BONES: Patient status post right hip arthroplasty with no acute fracture, subluxation or dislocation appreciable at this time. Postoperative changes seen the local soft tissues including emphysema and lateral skin gianluca. No destructive bony lesion appreciable. JOINTS: As above. SOFT TISSUES: As above. OTHER FINDINGS: None. IMPRESSION: Status post right hip arthroplasty with postoperative changes as discussed above.
[2018-01-02] MEDS: Enoxaparin 40 mg Syringe SC SCH (17:21)
[2018-01-02] MEDS: oxyCODONE 10 mg ER Tab (oxyCONTIN) PO SCH (20:29)
[2018-01-02] MEDS: oxyCODONE 10 mg Immediate Release Tab PO PRN (21:33)
[2018-01-03] MEDS: Albuterol 0.042% Inhal Sol (1.25 mg/3 mL) UD INH PRN (04:15)
[2018-01-03 06:31] LABS: HEMOGLOBIN 10.9 g/dL (12.0-18.0); MEAN CELL VOLUME 88.3 fl (80.0-94.0); MEAN CORPUSCULAR HEMOGLOBIN 29.9 pg (27.0-31.0); MEAN CORPUSCULAR HGB CONC 33.8 g/dL (33.0-37.0); RBC 3.64 Mil/uL (4.40-5.90); RED CELL DISTRIBUTION WIDTH 14.1 % (11.5-14.5); WHITE BLOOD COUNT 7.7 K/uL (4.8-10.8)
[2018-01-03 06:32] LABS: BLOOD UREA NITROGEN 32 mg/dl (9-20); CALCIUM 8.5 mg/dL (8.4-10.2); GFR NON-AFRICAN AMERICAN 58
[2018-01-03] MEDS: Calcium-Vit D 250 mg-125 Units Tab UD PO SCH (10:11)
[2018-01-03] MEDS: Cholecalciferol 1,000 INTLU TAB PO SCH (10:11)
--- NOTE | 2018-01-03 10:14 | CP.PCM.PN ---
Subjective - Date & Time of Evaluation Date of Evaluation: 01/03/18 Time of Evaluation: 08:30 - Subjective Subjective: Patient seen and examined OOB to chair. Pain is better controlled compared to yesterday. Transferred to med/surg yesterday. No acute events overnight. Denies CP/SOB/N/V/D. Objective - Vital Signs/Intake and Output Vital Signs (last 24 hours): Temp Pulse Resp BP Pulse Ox 97.4 F L 72 19 111/65 99 01/03/18 08:10 01/03/18 10:11 01/03/18 08:10 01/03/18 10:11 01/03/18 08:10 Intake and Output: 01/03/18 01/03/18 06:59 18:59 Intake Total 100 Balance 100 - Medications Medications: Current Medications Acetaminophen (Tylenol 325mg Tab) 650 mg PO Q6 [facility] Last Admin: 01/03/18 03:56 Dose: 650 mg Albuterol Sulfate (Albuterol 0.042% Inhal Roseanna (1.25mg/3ml) Ud) 1.25 mg INH RQ6 PRN PRN Reason: Shortness of Breath Last Admin: 01/03/18 04:15 Dose: 1.25 mg Calcium/Vitamin D (Oscal-D 250 Mg-125 Units Tab) 1 tab PO DAILY [facility] Last Admin: 01/03/18 10:11 Dose: 1 tab Cholecalciferol (Vitamin D) 1,000 intlu PO DAILY [facility] Last Admin: 01/03/18 10:11 Dose: 1,000 intlu Docusate Sodium (Colace) 100 mg PO BID [facility] Last Admin: 01/03/18 10:09 Dose: 100 mg Enoxaparin Sodium (Lovenox) 40 mg SC Q24H [facility] PRN Reason: Protocol Last Admin: 01/02/18 17:21 Dose: 40 mg Ferrous Sulfate (Feosol) 325 mg PO TID [facility] Last Admin: 01/03/18 10:10 Dose: 325 mg Folic Acid (Folic Acid) 1 mg PO DAILY [facility] Last Admin: 01/03/18 10:10 Dose: 1 mg Hydromorphone HCl (Dilaudid) 1 mg IVP Q3 PRN PRN Reason: Pain, severe (8-10) Last Admin: 01/03/18 04:02 Dose: 1 mg Ketorolac Tromethamine (Toradol) 30 mg IVP Q6 PRN PRN Reason: Pain, moderate (4-7) Losartan Potassium (Cozaar) 50 mg PO DAILY [facility] Last Admin: 01/03/18 10:11 Dose: 50 mg Mercaptopurine (6-Mp) 100 mg PO DAILY [facility] Last Admin: 01/03/18 10:02 Dose: 100 mg Mesalamine (Delzicol Dr) 800 mg PO TID [facility] Last Admin: 01/03/18 10:07 Dose: 800 mg Montelukast Sodium (Singulair) 10 mg PO HS [facility] Last Admin: 01/02/18 21:26 Dose: 10 mg Oxycodone HCl (Oxycodone Immediate Release Tab) 10 mg PO Q4 PRN PRN Reason: Pain, moderate (4-7) Last Admin: 01/02/18 21:33 Dose: 10 mg Oxycodone HCl (Oxycodone Immediate Release Tab) 5 mg PO Q6 PRN PRN Reason: Pain, Mild (1-3) Oxycodone HCl (Oxycontin Extended Release Tab) 10 mg PO Q12 [facility] Stop: 01/05/18 21:01 Last Admin: 01/02/18 20:29 Dose: 10 mg Prednisone (Prednisone Tab) 10 mg PO DAILY [facility] Last Admin: 01/03/18 10:10 Dose: 10 mg Tamsulosin HCl (Flomax) 0.4 mg PO DAILY [facility] Last Admin: 01/03/18 10:09 Dose: 0.4 mg - Labs Labs: 01/03/18 05:42 01/03/18 05:42 PT 13.7 Seconds (9.8-13.1) H 01/01/18 05:20 INR 1.2 01/01/18 05:20 APTT 29.2 Seconds (25.6-37.1) 01/01/18 05:20 - Extremities Exam Additional comments: R hip: mild swelling, mild tenderness Aquacel CDI, dressings removed revealing wound and navigation sites CDI with gianluca and nylon sutures sensation intact SP/DP/TN motor intact EHL/FHL/TA/G pedal pulses intact comps soft NT b/l Assessment and Plan (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 Villegas in agreement Status: Acute
[2018-01-03] MEDS: oxyCODONE 10 mg ER Tab (oxyCONTIN) PO SCH ×2 (10:44→21:16)
[2018-01-03 13:17] VITALS: BMI 24.3
--- NOTE | 2018-01-03 16:41 | CP.PCM.PN ---
Subjective - Date & Time of Evaluation Date of Evaluation: 01/03/18 Time of Evaluation: 12:30 - Subjective Subjective: pt doing well pod 2 thr. no f/c, nv/d/. no numbness/tingling. bw noted. doing well off vent, downgraded to m/s for shayy tomorrow Objective - Vital Signs/Intake and Output Vital Signs (last 24 hours): Temp Pulse Resp BP Pulse Ox 99.5 F 94 H 20 114/69 93 L 01/03/18 16:26 01/03/18 16:26 01/03/18 16:26 01/03/18 16:26 01/03/18 16:26 Intake and Output: 01/03/18 01/03/18 06:59 18:59 Intake Total 100 Balance 100 - Medications Medications: Current Medications Acetaminophen (Tylenol 325mg Tab) 650 mg PO Q6 [facility] Last Admin: 01/03/18 03:56 Dose: 650 mg Albuterol Sulfate (Albuterol 0.042% Inhal Roseanna (1.25mg/3ml) Ud) 1.25 mg INH RQ6 PRN PRN Reason: Shortness of Breath Last Admin: 01/03/18 04:15 Dose: 1.25 mg Calcium/Vitamin D (Oscal-D 250 Mg-125 Units Tab) 1 tab PO DAILY [facility] Last Admin: 01/03/18 10:11 Dose: 1 tab Cholecalciferol (Vitamin D) 1,000 intlu PO DAILY [facility] Last Admin: 01/03/18 10:11 Dose: 1,000 intlu Docusate Sodium (Colace) 100 mg PO BID [facility] Last Admin: 01/03/18 10:09 Dose: 100 mg Enoxaparin Sodium (Lovenox) 40 mg SC Q24H [facility] PRN Reason: Protocol Last Admin: 01/02/18 17:21 Dose: 40 mg Ferrous Sulfate (Feosol) 325 mg PO TID [facility] Last Admin: 01/03/18 13:24 Dose: 325 mg Folic Acid (Folic Acid) 1 mg PO DAILY [facility] Last Admin: 01/03/18 10:10 Dose: 1 mg Hydromorphone HCl (Dilaudid) 1 mg IVP Q3 PRN PRN Reason: Pain, severe (8-10) Last Admin: 01/03/18 14:19 Dose: 1 mg Ketorolac Tromethamine (Toradol) 30 mg IVP Q6 PRN PRN Reason: Pain, moderate (4-7) Losartan Potassium (Cozaar) 50 mg PO DAILY [facility] Last Admin: 01/03/18 10:11 Dose: 50 mg Mercaptopurine (6-Mp) 100 mg PO DAILY [facility] Last Admin: 01/03/18 10:02 Dose: 100 mg Mesalamine (Delzicol Dr) 800 mg PO TID [facility] Last Admin: 01/03/18 13:24 Dose: 800 mg Montelukast Sodium (Singulair) 10 mg PO HS [facility] Last Admin: 01/02/18 21:26 Dose: 10 mg Oxycodone HCl (Oxycodone Immediate Release Tab) 10 mg PO Q4 PRN PRN Reason: Pain, moderate (4-7) Last Admin: 01/02/18 21:33 Dose: 10 mg Oxycodone HCl (Oxycodone Immediate Release Tab) 5 mg PO Q6 PRN PRN Reason: Pain, Mild (1-3) Oxycodone HCl (Oxycontin Extended Release Tab) 10 mg PO Q12 [facility] Stop: 01/05/18 21:01 Last Admin: 01/03/18 10:44 Dose: 10 mg Prednisone (Prednisone Tab) 10 mg PO DAILY [facility] Last Admin: 01/03/18 10:10 Dose: 10 mg Tamsulosin HCl (Flomax) 0.4 mg PO DAILY [facility] Last Admin: 01/03/18 10:09 Dose: 0.4 mg - Labs Labs: 01/03/18 05:42 01/03/18 05:42 PT 13.7 Seconds (9.8-13.1) H 01/01/18 05:20 INR 1.2 01/01/18 05:20 APTT 29.2 Seconds (25.6-37.1) 01/01/18 05:20 - Constitutional Appears: Well, Non-toxic, No Acute Distress - Head Exam Head Exam: ATRAUMATIC, NORMAL INSPECTION, NORMOCEPHALIC - Eye Exam Eye Exam: EOMI, Normal appearance, PERRL Pupil Exam: NORMAL ACCOMODATION, PERRL - ENT Exam ENT Exam: Mucous Membranes Moist, Normal Exam - Neck Exam Neck Exam: Full ROM, Normal Inspection. absent: Lymphadenopathy - Respiratory Exam Respiratory Exam: Clear to Ausculation Bilateral, NORMAL BREATHING PATTERN - Cardiovascular Exam Cardiovascular Exam: REGULAR RHYTHM, RRR, +S1, +S2. absent: Murmur - GI/Abdominal Exam GI & Abdominal Exam: Soft, Normal Bowel Sounds. absent: Tenderness - Extremities Exam Extremities Exam: Full ROM, Normal Capillary Refill, Normal Inspection, Tenderness. absent: Joint Swelling, Pedal Edema Additional comments: r hip - Back Exam Back Exam: NORMAL INSPECTION - Neurological Exam Neurological Exam: Alert, Awake, CN II-XII Intact, Normal Gait, Oriented x3 - Psychiatric Exam Psychiatric exam: Normal Affect, Normal Mood - Skin Skin Exam: Dry, Intact, Normal Color, Warm Assessment and Plan (1) Avascular necrosis of bone of right hip Status: Acute (2) Osteoarthritis of hip Status: Acute (3) DVT prophylaxis Status: Acute (4) CAD (coronary artery disease) Status: Chronic (5) COPD (chronic obstructive pulmonary disease) Status: Acute - Assessment and Plan (Free Text) Assessment: (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 pain control pt/ot/sw Status: Acute (2) Osteoarthritis of hip Assessment & Plan: pain control postop day 2 ortho pt/ot shayy tomorrow Status: Acute (3) DVT prophylaxis Assessment & Plan: scd nad ae hose lovenox Status: Acute (4) CAD (coronary artery disease) Assessment & Plan: cardio cont meds Status: Chronic (5) COPD (chronic obstructive pulmonary disease) Assessment & Plan: extubated, cont home meds doing well, resps even and unlabored Status: Acute
[2018-01-03] MEDS: Enoxaparin 40 mg Syringe SC SCH (17:23)
[2018-01-03] MEDS: oxyCODONE 10 mg Immediate Release Tab PO PRN (19:30)
[2018-01-04 07:06] LABS: BLOOD UREA NITROGEN 30 mg/dl (9-20); CALCIUM 8.7 mg/dL (8.4-10.2); GFR NON-AFRICAN AMERICAN > 60
[2018-01-04 07:13] LABS: HEMOGLOBIN 10.4 g/dL (12.0-18.0); MEAN CELL VOLUME 89.1 fl (80.0-94.0); MEAN CORPUSCULAR HGB CONC 33.7 g/dL (33.0-37.0); RBC 3.48 Mil/uL (4.40-5.90); RED CELL DISTRIBUTION WIDTH 14.2 % (11.5-14.5); WHITE BLOOD COUNT 7.8 K/uL (4.8-10.8)
[2018-01-04] MEDS: Albuterol 0.042% Inhal Sol (1.25 mg/3 mL) UD INH PRN (07:55)
[2018-01-04 07:59] VITALS: BP 123/75; PULSE 79; RESP 19; TEMP 97.6; O2SAT 94
[2018-01-04] MEDS: Calcium-Vit D 250 mg-125 Units Tab UD PO SCH (08:36)
[2018-01-04] MEDS: Cholecalciferol 1,000 INTLU TAB PO SCH (08:36)
[2018-01-04] MEDS: oxyCODONE 10 mg ER Tab (oxyCONTIN) PO SCH (08:41)
--- NOTE | 2018-01-04 08:51 | CP.PCM.PN ---
Subjective - Date & Time of Evaluation Date of Evaluation: 01/04/18 Time of Evaluation: 08:50 - Subjective Subjective: pt doing well. nof /c, n/v/d. faint wheezing w/ good air entry heard yudith ll ortiz. bw noted. for shayy today pain control had constipation w/ relief from lactulose/colace Objective - Vital Signs/Intake and Output Vital Signs (last 24 hours): Temp Pulse Resp BP Pulse Ox 97.6 F 79 19 123/75 94 L 01/04/18 07:59 01/04/18 08:35 01/04/18 07:59 01/04/18 08:35 01/04/18 07:59 - Medications Medications: Current Medications Acetaminophen (Tylenol 325mg Tab) 650 mg PO Q6 [facility] Last Admin: 01/04/18 04:39 Dose: 650 mg Albuterol Sulfate (Albuterol 0.042% Inhal Roseanna (1.25mg/3ml) Ud) 1.25 mg INH RQ6 PRN PRN Reason: Shortness of Breath Last Admin: 01/04/18 07:55 Dose: 1.25 mg Calcium/Vitamin D (Oscal-D 250 Mg-125 Units Tab) 1 tab PO DAILY [facility] Last Admin: 01/04/18 08:36 Dose: 1 tab Cholecalciferol (Vitamin D) 1,000 intlu PO DAILY [facility] Last Admin: 01/04/18 08:36 Dose: 1,000 intlu Docusate Sodium (Colace) 100 mg PO BID [facility] Last Admin: 01/04/18 08:35 Dose: 100 mg Enoxaparin Sodium (Lovenox) 40 mg SC Q24H [facility] PRN Reason: Protocol Last Admin: 01/03/18 17:23 Dose: 40 mg Ferrous Sulfate (Feosol) 325 mg PO TID [facility] Last Admin: 01/04/18 08:36 Dose: 325 mg Folic Acid (Folic Acid) 1 mg PO DAILY [facility] Last Admin: 01/04/18 08:36 Dose: 1 mg Hydromorphone HCl (Dilaudid) 1 mg IVP Q3 PRN PRN Reason: Pain, severe (8-10) Last Admin: 01/03/18 14:19 Dose: 1 mg Ketorolac Tromethamine (Toradol) 30 mg IVP Q6 PRN PRN Reason: Pain, moderate (4-7) Last Admin: 01/04/18 07:30 Dose: 30 mg Losartan Potassium (Cozaar) 50 mg PO DAILY [facility] Last Admin: 01/04/18 08:35 Dose: 50 mg Mercaptopurine (6-Mp) 100 mg PO DAILY [facility] Last Admin: 01/04/18 08:30 Dose: 100 mg Mesalamine (Delzicol Dr) 800 mg PO TID [facility] Last Admin: 01/04/18 08:35 Dose: 800 mg Montelukast Sodium (Singulair) 10 mg PO HS [facility] Last Admin: 01/03/18 21:18 Dose: 10 mg Oxycodone HCl (Oxycodone Immediate Release Tab) 10 mg PO Q4 PRN PRN Reason: Pain, moderate (4-7) Last Admin: 01/03/18 19:30 Dose: 10 mg Oxycodone HCl (Oxycodone Immediate Release Tab) 5 mg PO Q6 PRN PRN Reason: Pain, Mild (1-3) Oxycodone HCl (Oxycontin Extended Release Tab) 10 mg PO Q12 [facility] Stop: 01/05/18 21:01 Last Admin: 01/04/18 08:41 Dose: 10 mg Prednisone (Prednisone Tab) 10 mg PO DAILY [facility] Last Admin: 01/04/18 08:36 Dose: 10 mg Tamsulosin HCl (Flomax) 0.4 mg PO DAILY [facility] Last Admin: 01/04/18 08:36 Dose: 0.4 mg - Labs Labs: 01/04/18 05:55 01/04/18 05:55 PT 13.7 Seconds (9.8-13.1) H 01/01/18 05:20 INR 1.2 01/01/18 05:20 APTT 29.2 Seconds (25.6-37.1) 01/01/18 05:20 - Constitutional Appears: Well, Non-toxic, No Acute Distress - Head Exam Head Exam: ATRAUMATIC, NORMAL INSPECTION, NORMOCEPHALIC - Eye Exam Eye Exam: EOMI, Normal appearance, PERRL Pupil Exam: NORMAL ACCOMODATION, PERRL - ENT Exam ENT Exam: Mucous Membranes Moist, Normal Exam - Neck Exam Neck Exam: Full ROM, Normal Inspection. absent: Lymphadenopathy - Respiratory Exam Respiratory Exam: Wheezes, NORMAL BREATHING PATTERN Additional comments: good air entry - Cardiovascular Exam Cardiovascular Exam: REGULAR RHYTHM, RRR, +S1, +S2. absent: Murmur - GI/Abdominal Exam GI & Abdominal Exam: Soft, Normal Bowel Sounds. absent: Tenderness - Extremities Exam Extremities Exam: Full ROM, Normal Capillary Refill, Normal Inspection, Tenderness. absent: Joint Swelling, Pedal Edema Additional comments: r hip dsg c/d/i - Back Exam Back Exam: NORMAL INSPECTION - Neurological Exam Neurological Exam: Abnormal Gait, Alert, Awake, CN II-XII Intact, Oriented x3 - Psychiatric Exam Psychiatric exam: Normal Affect, Normal Mood - Skin Skin Exam: Dry, Intact, Normal Color, Warm Assessment and Plan (1) Avascular necrosis of bone of right hip Status: Acute (2) Osteoarthritis of hip Status: Acute (3) DVT prophylaxis Status: Acute (4) CAD (coronary artery disease) Status: Chronic (5) COPD (chronic obstructive pulmonary disease) Status: Acute - Assessment and Plan (Free Text) Assessment: (1) Avascular necrosis of bone of right hip Assessment & Plan: s/p thr day 3. pain control pt/ot/sw Status: Acute (2) Osteoarthritis of hip Assessment & Plan: pain control postop day 3 ortho pt/ot shayy today Status: Acute (3) DVT prophylaxis Assessment & Plan: scd nad ae hose lovenox Status: Acute (4) CAD (coronary artery disease) Assessment & Plan: cardio cont meds Status: Chronic (5) COPD (chronic obstructive pulmonary disease) Assessment & Plan: cont home meds/nebulizer Status: Acute
[2018-01-04] MEDS ORDERED: Albuterol 0.083% Inhal Sol (2.5 mg/3 mL) UD INH PRN (08:55)
[2018-01-04] MEDS ORDERED: Fluticasone-Salmeterol 250-50mcg Diskus IH SCH (09:00)
--- NOTE | 2018-01-04 13:02 | RAD ---
Date of service: 01/01/2018 PROCEDURE: Fluoroscopic assistance in excess of 1 hour. HISTORY: RIGHT HIP COMPARISON: None TECHNIQUE: Standard protocol for this study/examination. FINDINGS: Total fluoroscopic time (continuous mode) utilized during the procedure 14.0 (seconds). Total exam DLP: 1.60 (mGy). IMPRESSION: Submitted images from the current procedure: 6.0.
--- NOTE | 2018-01-04 13:36 | CP.PCM.PN ---
Subjective - Date & Time of Evaluation Date of Evaluation: 01/04/18 Time of Evaluation: 08:00 - Subjective Subjective: Patient states he is still having a lot of right hip pain. Denies CP/SOB/ dizziness/numbness/tingling. Objective - Vital Signs/Intake and Output Vital Signs (last 24 hours): Temp Pulse Resp BP Pulse Ox 97.6 F 79 19 123/75 94 L 01/04/18 07:59 01/04/18 08:35 01/04/18 07:59 01/04/18 08:35 01/04/18 07:59 - Medications Medications: Current Medications Acetaminophen (Tylenol 325mg Tab) 650 mg PO Q6 [facility] Last Admin: 01/04/18 10:52 Dose: 650 mg Albuterol Sulfate (Albuterol 0.083% Inhal Roseanna (2.5 Mg/3 Ml) Ud) 2.5 mg INH RQ4 PRN PRN Reason: Shortness of Breath Calcium/Vitamin D (Oscal-D 250 Mg-125 Units Tab) 1 tab PO DAILY [facility] Last Admin: 01/04/18 08:36 Dose: 1 tab Cholecalciferol (Vitamin D) 1,000 intlu PO DAILY [facility] Last Admin: 01/04/18 08:36 Dose: 1,000 intlu Docusate Sodium (Colace) 100 mg PO BID [facility] Last Admin: 01/04/18 08:35 Dose: 100 mg Enoxaparin Sodium (Lovenox) 40 mg SC Q24H [facility] PRN Reason: Protocol Last Admin: 01/03/18 17:23 Dose: 40 mg Ferrous Sulfate (Feosol) 325 mg PO TID [facility] Last Admin: 01/04/18 13:15 Dose: 325 mg Folic Acid (Folic Acid) 1 mg PO DAILY [facility] Last Admin: 01/04/18 08:36 Dose: 1 mg Hydromorphone HCl (Dilaudid) 1 mg IVP Q3 PRN PRN Reason: Pain, severe (8-10) Last Admin: 01/04/18 13:22 Dose: 1 mg Ketorolac Tromethamine (Toradol) 30 mg IVP Q6 PRN PRN Reason: Pain, moderate (4-7) Last Admin: 01/04/18 07:30 Dose: 30 mg Losartan Potassium (Cozaar) 50 mg PO DAILY [facility] Last Admin: 01/04/18 08:35 Dose: 50 mg Mercaptopurine (6-Mp) 100 mg PO DAILY [facility] Last Admin: 01/04/18 08:30 Dose: 100 mg Mesalamine (Delzicol Dr) 800 mg PO TID [facility] Last Admin: 01/04/18 13:15 Dose: 800 mg Montelukast Sodium (Singulair) 10 mg PO HS [facility] Last Admin: 01/03/18 21:18 Dose: 10 mg Oxycodone HCl (Oxycodone Immediate Release Tab) 10 mg PO Q4 PRN PRN Reason: Pain, moderate (4-7) Last Admin: 01/03/18 19:30 Dose: 10 mg Oxycodone HCl (Oxycodone Immediate Release Tab) 5 mg PO Q6 PRN PRN Reason: Pain, Mild (1-3) Oxycodone HCl (Oxycontin Extended Release Tab) 10 mg PO Q12 [facility] Stop: 01/05/18 21:01 Last Admin: 01/04/18 08:41 Dose: 10 mg Prednisone (Prednisone Tab) 10 mg PO DAILY [facility] Last Admin: 01/04/18 08:36 Dose: 10 mg Fluticasone/Salmeterol (Advair Diskus 250/50) 1 puff IH Q12 [facility] Last Admin: 01/04/18 10:50 Dose: 1 inh Tamsulosin HCl (Flomax) 0.4 mg PO DAILY [facility] Last Admin: 01/04/18 08:36 Dose: 0.4 mg - Labs Labs: 01/04/18 05:55 01/04/18 05:55 PT 13.7 Seconds (9.8-13.1) H 01/01/18 05:20 INR 1.2 01/01/18 05:20 APTT 29.2 Seconds (25.6-37.1) 01/01/18 05:20 - Extremities Exam Additional comments: Right hip: dressing changed. +ROM ankle/toes, sensation intact calves soft NT neg homans +DP/PT pulses incision intact, dry, no erytheam, dry sterile dressings applied Assessment and Plan (1) Osteoarthritis of hip Assessment & Plan: POD#3 s/p right THR anterior PT-OT cont VTE proph encourage OOB patient admitted for intractable hip pain, improving after THR orthopedically stable for d/c cont VTE proh dressing changes daily right hip f/u Dr. Villegas 10 days maurice for appt [phone] Status: Acute (2) Hip pain Status: Acute (3) Vitamin D deficiency Assessment & Plan: cont supp Status: Acute (4) Acute blood loss anemia Assessment & Plan: stable Status: Acute
== END 2018-01-04 15:50 | DRG 470 ==
LOC: H.ER 14:04 → H.ERHOLD 19:55 → H.MEDSURG1 21:57 → H.ICU/CCU 01-01 20:10 → H.MEDSURG1 01-02 22:14
PROVIDERS: ADMIT Family Medicine; ATTEND Family Medicine
PROC: 8E0YXBZ Computer Assisted Procedure of Lower Extremity (ICD-10-PCS; 2018-01-01)
PROC: 0JBL0ZX Excision of Right Upper Leg Subcutaneous Tissue and Fascia, Open Approach, Diagnostic (ICD-10-PCS; 2018-01-01)
PROC: 0SR903A Replacement of Right Hip Joint with Ceramic Synthetic Substitute, Uncemented, Open Approach (ICD-10-PCS; principal; 2018-01-01 14:45)
DX: M16.11 Unilateral primary osteoarthritis, right hip (principal); I50.22 Chronic systolic (congestive) heart failure; M87.9 Osteonecrosis, unspecified; D62 Acute posthemorrhagic anemia; E78.00 Pure hypercholesterolemia, unspecified; I25.10 Atherosclerotic heart disease of native coronary artery without angina pectoris; I25.5 Ischemic cardiomyopathy; Z95.810 Presence of automatic (implantable) cardiac defibrillator; Z87.891 Personal history of nicotine dependence; I48.91 Unspecified atrial fibrillation; J43.9 Emphysema, unspecified; K29.70 Gastritis, unspecified, without bleeding; I11.0 Hypertensive heart disease with heart failure; E78.5 Hyperlipidemia, unspecified; I27.20 Pulmonary hypertension, unspecified; D72.829 Elevated white blood cell count, unspecified; K59.00 Constipation, unspecified; E55.9 Vitamin D deficiency, unspecified; D16.8 Benign neoplasm of pelvic bones, sacrum and coccyx; Z91.013 Allergy to seafood